=== PATIENT | female | born 1935 | race Caucasian/White ===

== ENCOUNTER 2020-05-14 16:57 | Inpatient (IN) | payer OTHER ==
[2020-05-14] MEDS ORDERED: SODIUM CHLORIDE 1,000 ML IV STA ×2 (17:05→18:54)
[2020-05-14] MEDS ORDERED: ACETAMINOPHEN 1000 MG/100 ML VIAL (NON FORMULARY) IVPB ONE (17:05)
--- NOTE | 2020-05-14 17:09 | PDOC ---
Rapid Medical Evaluation Chief Complaint: Urinary Problem Time Seen by Provider: 05/14/20 17:02 Medical Evaluation: Allergies Allergy/AdvReac Type Severity Reaction Status Date / Time No Known Drug Allergies Allergy Verified 01/07/15 16:46 Vital Signs Temp Pulse Resp BP Pulse Ox 102.3 F H 95 H 20 139/85 97 05/14/20 17:01 05/14/20 17:01 05/14/20 17:01 05/14/20 17:01 05/14/20 17:01 05/14/20 17:08 CC: recent uti, on keflex, now with fever and increased confusion Exam: febrile, alert with + eye contatc Plan: septic w/u Discharge Disposition - Diagnosis Sepsis - Referrals - Patient Instructions - Post Discharge Activity
[2020-05-14] MEDS ORDERED: ACETAMINOPHEN INJECTION 100 ML IVPB ONE (18:20)
[2020-05-14 18:24] LABS: BASO % 0.3 % (0-2.0); EOS % 0.1 % (0-4.5); HEMATOCRIT 44.3 % (32.4-45.2); LYMPH % 12.9 % (8-40); MCH 32.2 pg (25.7-33.7); MCHC 33.9 g/dl (32.0-36.0); MEAN PLT VOLUME 8.3 fl (7.5-11.1); MONO % 9.2 % (3.8-10.2); NEUT % 77.5 % (42.8-82.8); PLATELET COUNT 257 K/MM3 (134-434); RBC 4.66 M/mm3 (3.60-5.2); RDW 12.6 % (11.6-15.6); WHITE BLOOD COUNT 13.5 K/mm3 (4.0-10.0)
[2020-05-14 18:49] LABS: URINE APPEARANCE CLEAR; URINE BILIRUBIN NEGATIVE (NEGATIVE); URINE COLOR YELLOW; URINE GLUCOSE (UA) TRACE (NEGATIVE); URINE KETONE NEGATIVE (NEGATIVE); URINE LEUK ESTERASE NEGATIVE (NEGATIVE); URINE NITRITE NEGATIVE (NEGATIVE); URINE PROTEIN NEGATIVE (NEGATIVE); URINE UROBILINOGEN 4.0 E.U/dl mg/dL (0.2-1.0)
[2020-05-14 18:57] LABS: ALBUMIN 3.6 g/dl (3.4-5.0); ALK PHOS 84 U/L (45-117); ANION GAP 9 MMOL/L (8-16); BILIRUBIN,TOTAL 1.2 mg/dL (0.2-1); BLOOD UREA NITROGEN 15.8 mg/dL (7-18); CALCIUM 9.2 mg/dL (8.5-10.1); CHLORIDE 98 mmol/L (98-107); CO2 26 mmol/L (21-32); CREATININE 0.7 mg/dL (0.55-1.3); GLUCOSE,RANDOM 114 mg/dL (74-106); POTASSIUM 3.5 mmol/L (3.5-5.1); SGOT/AST 28 U/L (15-37); SGPT/ALT 33 U/L (13-61); SODIUM 132 mmol/L (136-145); TOT PROT 7.4 g/dl (6.4-8.2)
--- NOTE | 2020-05-14 19:24 | PDOC ---
Attending Attestation - Resident Resident Name: Bandar Vincent - ED Attending Attestation I have performed the following: I have examined & evaluated the patient, The case was reviewed & discussed with the resident, I agree w/resident's findings & plan - HPI HPI: 05/14/20 20:48 see resident hpi - Physicial Exam PE: 05/14/20 20:48 see resident exam - Critical Care Time Total Critical Care Time: 60 Critical Care Statement: The care of this patient involved high complexity decision making to prevent further life threatening deterioration of the patient's condition and/or to evaluate & treat vital organ system(s) failure or risk of failure. - Medical Decision Making 05/14/20 20:48 84-year-old female with recent treatment for urinary tract infection now with fever and altered mental status according to daughter Plan for sepsis evaluation, CT scan of the head as well as CT scan of the abdomen and pelvis due to elevation of bilirubin and poor historian status We will follow-up with ultrasound if indicated Plan for admission Discharge - Discharge Information Problems reviewed: Yes Clinical Impression/Diagnosis: Sepsis - Follow up/Referral Referrals: Karel Avila MD [Primary Care Provider] - - Patient Discharge Instructions - Post Discharge Activity
--- NOTE | 2020-05-14 19:42 | PDOC ---
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 Pt was recently in the ED on 05/12 for vomiting and was incidentally found to have a UTI. She was discharged with po keflex 500 mg bid. Pt doesn't have any children and her recently so most of history was obtained from niece who was at bedside. Niece reports worsening of mental status since being discharged from the ED on 05/12. At baseline, she has mild memory deficits but is well-oriented and interactive; speaks Ukranian. Today pt is not responsive to verbal commands, but will follow some commands with gestures. She is also disoriented - not responding to questions regarding name, day, or location; but did express that it was past 6 pm by looking at clock on the wall. Pt no longer with nausea/vomiting. ROS limited as pt not responding to questions, even with help from niece. Niece denies that pt is having chills, headache, falls, weakness, changes in strength/sensation, or vision changes. PMHX: as in HPI PSHX: see below Meds: Aspirin [ASA -] 81 mg PO DAILY #0 tab.chew 05/27/12 Metoprolol Tartrate [Lopressor -] 50 mg PO BID #0 tablet 05/27/12 Cholecalciferol (Vitamin D3) [Vitamin D3 -] 1,000 unit PO DAILY 01/07/15 Simvastatin 10 mg PO DAILY 01/07/15 Cephalexin [Keflex] 500 mg PO BID 10 Days #20 capsule 05/12/20 Allergies: nkda Tob: denies Etoh: denies Rec drugs: denies PCP: Dr. Austin THOMPSON GENERAL/CONSTITUTIONAL: No chills. No weakness. + fever HEAD, EYES, EARS, NOSE AND THROAT: No change in vision. No ear pain or discharg e. No sore throat. CARDIOVASCULAR: No chest pain or shortness of breath RESPIRATORY: No cough, wheezing, or hemoptysis. GASTROINTESTINAL: No nausea, vomiting, diarrhea or constipation. GENITOURINARY: No dysuria, frequency, or change in urination. MUSCULOSKELETAL: No joint or muscle swelling or pain. No neck or back pain. SKIN: No rash NEUROLOGIC: No headache, vertigo, loss of consciousness, or change in strength/sensation. +altered mental status ENDOCRINE: No increased thirst. No abnormal weight change HEMATOLOGIC/LYMPHATIC: No anemia, easy bleeding, or history of blood clots. ALLERGIC/IMMUNOLOGIC: No hives or skin allergy. PE GENERAL: Awake, alert,and no oriented; in no acute distress HEAD: No signs of trauma, normocephalic, atraumatic EYES: PERRLA, EOMI, sclera anicteric, conjunctiva clear ENT: Auricles normal inspection, hearing grossly normal, nares patent, oropharynx clear without exudates. Moist mucosa NECK: Normal ROM, supple, no lymphadenopathy, JVD, or masses LUNGS: No distress, speaks full sentences, clear to auscultation bilaterally HEART: Regular rate and rhythm, normal S1 and S2, no murmurs, rubs or gallops, peripheral pulses normal and equal bilaterally. ABDOMEN: Soft, nontender, nondistended normoactive bowel sounds. No suprapubic tenderness EXTREMITIES : Normal inspection, Normal range of motion, no edema. No clubbing or cyanosis. NEUROLOGICAL: Cranial nerves II through XII grossly intact. Normal speech, normal gait, no focal sensorimotor deficits. SKIN: Warm, Dry, normal turgor, no rashes or lesions noted 05/14/20 19:52 Past History - Medical History Allergies/Adverse Reactions: Allergies Allergy/AdvReac Type Severity Reaction Status Date / Time No Known Drug Allergies Allergy Verified 01/07/15 16:46 Home Medications: Ambulatory Orders Cephalexin [Keflex] 500 mg PO BID 10 Days #20 capsule 05/12/20 Losartan Potassium 50 mg PO DAILY 05/14/20 Atorvastatin Ca [Lipitor] 20 mg PO HS 05/16/20 Metoprolol Tartrate [Lopressor -] 50 mg PO DAILY 05/16/20 Montelukast Sodium [Singulair] 10 mg PO DAILY 05/16/20 Anemia: No Asthma: No CVA: No COPD: No CHF: No Dementia: No Diabetes: No HTN: Yes Hypercholesterolemia: No Seizures: No - Reproductive History Is Patient Now?: No - Immunization History Immunization Up to Date: No - Psycho-Social/Smoking History Smoking Status: No Smoking History: Never smoked Have you smoked in the past 12 months: No Number of Cigarettes Smoked Daily: 0 If you are a former smoker, when did you quit?: 20y Information on smoking cessation initiated: No - Substance Abuse Hx (Audit-C & DAST Scrn) How often the patient has a drink containing alcohol: Never Score: In Men: 4 or > Positive; In Women: 3 or > Positive: 0 Screen Result (Pos requires Nsg. Audit-10AR): Negative In the last yr the pt used illegal drug/Rx for NonMed reason: No Score: Yes response is considered Positive: 0 Screen Result (Positive result requires Nsg. DAST-10): Negative *Physical Exam - Vital Signs Last Vital Signs Temp Pulse Resp BP Pulse Ox 102.3 F H 95 H 20 139/85 97 05/14/20 17:01 05/14/20 17:01 05/14/20 17:01 05/14/20 17:01 05/14/20 17:01 ED Treatment Course - LABORATORY CBC & Chemistry Diagram: 05/16/20 05:50 05/16/20 05:50 - ADDITIONAL ORDERS Additional order review: Laboratory Results 05/14/20 05/14/20 18:30 18:05 Sodium 132 L Potassium 3.5 Chloride 98 Carbon Dioxide 26 Anion Gap 9 BUN 15.8 Creatinine 0.7 Est GFR (CKD-EPI)AfAm 93.52 Est GFR (CKD-EPI)NonAf 80.69 Random Glucose 114 H Calcium 9.2 Total Bilirubin 1.2 H AST 28 ALT 33 Alkaline Phosphatase 84 Total Protein 7.4 Albumin 3.6 Urine Color Yellow Urine Appearance Clear Urine pH 6.0 Ur Specific [place] 1.022 Urine Protein Negative Urine Glucose (UA) Trace Urine Ketones Negative Urine Blood Negative Urine Nitrite Negative Urine Bilirubin Negative Urine Urobilinogen 4.0 e.u/dl H Ur Leukocyte Esterase Negative 05/14/20 18:05 RBC 4.66 MCV 95.0 MCHC 33.9 RDW 12.6 MPV 8.3 Neutrophils % 77.5 Lymphocytes % 12.9 D Monocytes % 9.2 Eosinophils % 0.1 D Basophils % 0.3 - RADIOLOGY Radiology Studies Ordered: Category Date Time Status HEAD CT WITHOUT CONTRAST [CT] Stat CT Scan 05/14/20 19:02 Ordered - Medications Given in the ED: ED Medications Discontinued Medications Generic Name Dose Route Start Last Admin Trade Name Godwin PRN Reason Stop Dose Admin Acetaminophen 1,000 mg 05/14/20 17:05 05/14/20 18:25 Ofirmev Injection - IVPB 05/14/20 17:06 1,000 mg ONCE ONE Administration Sodium Chloride 1,000 mls @ 1,000 mls/hr 05/14/20 17:05 05/14/20 18:25 Normal Saline - IV 05/14/20 18:04 1,000 mls/hr ASDIR STA Administration Medical Decision Making - Medical Decision Making 05/14/20 19:59 MDM Pt is an 84 yo F with PMH of HTN, HLD, and ?age-associated memory loss p resenting to the ED with altered mental status and recent UTI. DDX including but not limited to: delirium 2/2 UTI with concern for sepsis vs sepsis 2/2 another source; r/o neurological etiology to AMS W/U: - CXR, CT Head - CBC, CMP, lactate - UA, Urine Culture, Blood Culture - EKG - CT A/P TX: - IVF rescuscitation - IV Tylenol - 1g IV Rocephin 05/14/20 20:06 labs significant for: WBC 13.5 05/14/20 21:30 Discharge - Discharge Information Problems reviewed: Yes Clinical Impression/Diagnosis: Intracranial hemorrhage, SIRS (systemic inflammatory response syndrome) AMS (altered mental status) Qualifiers: Altered mental status type: unspecified Qualified Code(s): R41.82 - Altered mental status, unspecified Condition: Guarded - Admission Yes - Follow up/Referral - Patient Discharge Instructions - Post Discharge Activity
[2020-05-14] MEDS ORDERED: CEFTRIAXONE 1 GM/50 ML BAG ONE (20:03)
[2020-05-14] MEDS ORDERED: CEFTRIAXONE 1 GM in DEXTROSE 5%-WATER - 50 ML IVPB ONE (20:15)
[2020-05-14] MEDS ORDERED: VANCOMYCIN 1,000 MG in DEXTROSE 5%-WATER - 250 ML IVPB ONE (21:57)
[2020-05-14] MEDS ORDERED: levETIRAcetam 500 MG/5 ML INJECTION VIAL IVPB ONE ×2 (22:09→22:36)
[2020-05-14] MEDS ORDERED: VANCOMYCIN 1 GRAM (PRE-DOCKED) 1,000 MG/250 ML BAG IVPB ONE (22:22)
--- NOTE | 2020-05-14 23:03 | HP ---
Admitting History and Physical - Primary Care Physician PCP: Karel Avila - Admission Chief Complaint: Altered Mental Status History of Present Illness: This is a 84 y/o female with a past medical history of Hypertension, Hyperlipidemia. ?age-associated Memory Loss. Who presents to the ED for AMS. Per ED records: patient's last known well was last Tuesday05/09/2020. Patient was seen in the ED on 05/12 for emesis, was found to have a UTI. She was discharged on Keflex 500mg po BID. Patient's niece reports worsening of mental status since being discharged from the ED on 05/12. At baseline, she has mild memory deficits but is well-oriented and interactive; speaks Ukranian. Today patient is not responsive to verbal commands, but will follow some commands with gestures. She is also disoriented - not responding to questions regarding name, day, or location; but did express that it was past 6 pm by looking at clock on the wall. The niece denies patient having recent falls, weakness, changes in strength/sensation, or vision changes. Per the niece, she denies patient having chills, cough, headache, SOB, CP, palpitations, abdominal pain, diarrhea, melena, hematochezia. 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) Cardiovascular: Yes: HTN, Hyperlipdemia ...: No - Past Surgical History Past Surgical History: Yes: None - Advance Directives Advance Directives: Yes: DNR (DNI) - Smoking History Smoking history: Former smoker Have you smoked in the past 12 months: No Aproximately how many cigarettes per day: 0 If you are a former smoker, when did you quit?: 20y - Alcohol/Substance Use Hx Alcohol Use: No History of Substance Use: reports: None - Social History Usual Living Arrangement: Yes: Other ADL: Family Assistance History of Recent Travel: No Home Medications - Allergies Allergies/Adverse Reactions: Allergies Allergy/AdvReac Type Severity Reaction Status Date / Time No Known Drug Allergies Allergy Verified 01/07/15 16:46 - Home Medications Home Medications: Ambulatory Orders Aspirin [ASA -] 81 mg PO DAILY #0 tab.chew 05/27/12 Cholecalciferol (Vitamin D3) [Vitamin D3 -] 1,000 unit PO DAILY 01/07/15 Simvastatin 10 mg PO DAILY 01/07/15 Cephalexin [Keflex] 500 mg PO BID 10 Days #20 capsule 05/12/20 Losartan Potassium 50 mg PO DAILY 05/14/20 Family Medical History Family History: Unable to Obtain Review of Systems Unable to obtain ROS, reason: Clinical Condition Physical Examination Vital Signs: Vital Signs Temperature 98.9 F 05/14/20 22:35 Pulse Rate 91 H 05/14/20 22:35 Respiratory Rate 24 H 05/14/20 22:35 Blood Pressure 159/74 05/14/20 22:35 O2 Sat by Pulse Oximetry (%) 95 05/14/20 22:35 Constitutional: Yes: No Distress, Calm Eyes: Yes: Conjunctiva Clear, EOM Intact, PERRL HENT: Yes: Atraumatic, Normocephalic Neck: Yes: Supple, Trachea Midline Cardiovascular: Yes: Regular Rate and Rhythm, S1, S2 Respiratory: Yes: Regular, CTA Bilaterally Gastrointestinal: Yes: Normal Bowel Sounds, Soft. No: Tenderness, Tenderness, Epigastrium, Tenderness, Rebound ...Rectal Exam: Yes: Deferred Renal/: Yes: Incontinence Breast(s): Yes: WNL Musculoskeletal: Yes: WNL Extremities: Yes: WNL Edema: No Peripheral Pulses WNL: Yes Neurological: Yes: Alert, Confusion Psychiatric: Yes: Alert Labs: CBC, BMP 05/14/20 18:05 05/14/20 18:05 Laboratory Results - last 24 hr 05/14/20 05/14/20 05/14/20 17:26 18:05 18:05 WBC 13.5 H RBC 4.66 Hgb 15.0 Hct 44.3 MCV 95.0 MCH 32.2 MCHC 33.9 RDW 12.6 Plt Count 257 MPV 8.3 Absolute Neuts (auto) 10.5 H Neutrophils % 77.5 Lymphocytes % 12.9 D Monocytes % 9.2 Eosinophils % 0.1 D Basophils % 0.3 Nucleated RBC % 0 Sodium 132 L Potassium 3.5 Chloride 98 Carbon Dioxide 26 Anion Gap 9 BUN 15.8 Creatinine 0.7 Est GFR (CKD-EPI)AfAm 93.52 Est GFR (CKD-EPI)NonAf 80.69 Random Glucose 114 H Lactic Acid 1.4 Calcium 9.2 Total Bilirubin 1.2 H AST 28 ALT 33 Alkaline Phosphatase 84 Troponin I < 0.02 Total Protein 7.4 Albumin 3.6 Urine Color Urine Appearance Urine pH Ur Specific [place] Urine Protein Urine Glucose (UA) Urine Ketones Urine Blood Urine Nitrite Urine Bilirubin Urine Urobilinogen Ur Leukocyte Esterase 05/14/20 18:30 WBC RBC Hgb Hct MCV MCH MCHC RDW Plt Count MPV Absolute Neuts (auto) Neutrophils % Lymphocytes % Monocytes % Eosinophils % Basophils % Nucleated RBC % Sodium Potassium Chloride Carbon Dioxide Anion Gap BUN Creatinine Est GFR (CKD-EPI)AfAm Est GFR (CKD-EPI)NonAf Random Glucose Lactic Acid Calcium Total Bilirubin AST ALT Alkaline Phosphatase Troponin I Total Protein Albumin Urine Color Yellow Urine Appearance Clear Urine pH 6.0 Ur Specific [place] 1.022 Urine Protein Negative Urine Glucose (UA) Trace Urine Ketones Negative Urine Blood Negative Urine Nitrite Negative Urine Bilirubin Negative Urine Urobilinogen 4.0 e.u/dl H Ur Leukocyte Esterase Negative Intake & Output 05/12/20 05/13/20 05/14/20 05/15/20 23:59 23:59 23:59 23:59 Weight 72.575 kg Imaging - Results Chest X-ray: Report Reviewed (read by Dr Krystyna Campos- large acute/subacute hemorrhage in the right frontal lobe, anteriorly measuring 4.4 x 3.1 cm with moderate surrounding edema and mild mass effect on the right frontal horn. Suggestion of minimial adjacent subarachnoid hemorrhage. ? faint/minimal subarachnoid hemorrhage at the right parieto-occipital junction), Image Reviewed Cat Scan: Report Reviewed, Image Reviewed EKG: Image Reviewed Problem List - Problems (1) Intracranial hemorrhage Assessment/Plan: Family reports AMS Head CT image, report reviewed- acute/subacute hemorrhage in the right frontal lobe Neurosurgeon consulted and aware- per ED resident Continue cardiac monitoring HOB elevated Neurochecks Seizure Precautions Fall Precautions NPO Swallow Eval MRI Brain in am Monitor CBC, CMP closely Will hold IVF 2/2 NS boluses given in ED Continue Keppra Code(s): I62.9 - NONTRAUMATIC INTRACRANIAL HEMORRHAGE, UNSPECIFIED (2) Acute metabolic encephalopathy Assessment/Plan: Likely secondary to ICH Neurochecks Fall Precautions Monitor vitals Monitor CBC, CMP Code(s): G93.41 - METABOLIC ENCEPHALOPATHY (3) Sepsis Assessment/Plan: Fever of unknown etiology qSOFA 1 UA reviewed- neg UTI Chest Xray- no acute pathology Blood Cultures x2-pending Urine Culture-pending Vancomycn, Ceftriaxone given in ED, will continue to treat empirically Appreciate ID consult Monitor CBC, CMP Ofirmev prn Code(s): A41.9 - SEPSIS, UNSPECIFIED ORGANISM (4) HTN (hypertension) Assessment/Plan: stable Monitor BP Hold home med BP meds IV only, prn Monitor renal function Code(s): I10 - ESSENTIAL (PRIMARY) HYPERTENSION (5) HLD (hyperlipidemia) Assessment/Plan: stable Hold home med for now Code(s): E78.5 - HYPERLIPIDEMIA, UNSPECIFIED (6) Encounter for screening laboratory testing for COVID-19 virus Assessment/Plan: Low Risk COVID PCR-pending Isolation Precautions Code(s): Z11.59 - ENCOUNTER FOR SCREENING FOR OTHER VIRAL DISEASES Assessment/Plan This is a 84 y/o female with a past medical history of Hypertension, Hyperlipidemia. ?age-associated Memory Loss. Admitted to Telemetry for Intracranial Hemorrhage for further evaluation of their emergent condition. Plan: See Problem List FEN Replete lytes prn NPO DVT ppx OOB SCDs Hold AC 2/2 ICH Code Status: DNR/DNI Dispo: Requires Inpatient Care Visit type - Medication Review Med list reviewed for High Risk Meds patients 65 and older: No (unable to verify med list) - Emergency Visit Emergency Visit: Yes ED Registration Date: 05/14/20 Care time: The patient presented to the Emergency Department on the above date and was hospitalized for further evaluation of their emergent condition. - New Patient This patient is new to me today: Yes Date on this admission: 05/14/20 - Critical Care Critical Care patient: No
--- NOTE | 2020-05-14 23:25 | PDOC ---
*Physical Exam - Vital Signs Last Vital Signs Temp Pulse Resp BP Pulse Ox 98.9 F 91 H 24 H 159/74 95 05/14/20 22:35 05/14/20 22:35 05/14/20 22:35 05/14/20 22:35 05/14/20 22:35 ED Treatment Course - LABORATORY CBC & Chemistry Diagram: 05/14/20 18:05 05/14/20 18:05 - ADDITIONAL ORDERS Additional order review: Laboratory Results 05/14/20 05/14/20 05/14/20 18:30 18:05 17:26 Sodium 132 L Potassium 3.5 Chloride 98 Carbon Dioxide 26 Anion Gap 9 BUN 15.8 Creatinine 0.7 Est GFR (CKD-EPI)AfAm 93.52 Est GFR (CKD-EPI)NonAf 80.69 Random Glucose 114 H Lactic Acid 1.4 Calcium 9.2 Total Bilirubin 1.2 H AST 28 ALT 33 Alkaline Phosphatase 84 Troponin I < 0.02 Total Protein 7.4 Albumin 3.6 Urine Color Yellow Urine Appearance Clear Urine pH 6.0 Ur Specific [place] 1.022 Urine Protein Negative Urine Glucose (UA) Trace Urine Ketones Negative Urine Blood Negative Urine Nitrite Negative Urine Bilirubin Negative Urine Urobilinogen 4.0 e.u/dl H Ur Leukocyte Esterase Negative 05/14/20 18:05 RBC 4.66 MCV 95.0 MCHC 33.9 RDW 12.6 MPV 8.3 Neutrophils % 77.5 Lymphocytes % 12.9 D Monocytes % 9.2 Eosinophils % 0.1 D Basophils % 0.3 - RADIOLOGY Radiology Studies Ordered: Category Date Time Status BRAIN MRI W&W/O CONTRAST [MRI] Stat MRI 05/14/20 22:36 Ordered - Medications Given in the ED: ED Medications Discontinued Medications Generic Name Dose Route Start Last Admin Trade Name Freq PRN Reason Stop Dose Admin Acetaminophen 1,000 mg 05/14/20 17:05 05/14/20 18:25 Ofirmev Injection - IVPB 05/14/20 17:06 1,000 mg ONCE ONE Administration Sodium Chloride 1,000 mls @ 1,000 mls/hr 05/14/20 17:05 05/14/20 18:25 Normal Saline - IV 05/14/20 18:04 1,000 mls/hr ASDIR STA Administration Sodium Chloride 1,000 mls @ 1,000 mls/hr 05/14/20 18:54 05/14/20 20:14 Normal Saline - IV 05/14/20 19:53 1,000 mls/hr ASDIR STA Administration Ceftriaxone Sodium 1 gm/ 50 mls @ 100 mls/hr 05/14/20 20:15 05/14/20 20:14 Dextrose IVPB 05/14/20 20:44 100 mls/hr ONCE ONE Administration Medical Decision Making - Medical Decision Making Pt was signed out to me by resident Dr. Vincent, who explained the presentation, ED course, any pending results, and needed interventions. Pending results include CTH and admission. Pt is currently stable and is lying comfortably. 05/14/20 23:21 CTH showed large R frontal ICH with small amount of SAH, no midline shift. Melina rn for malignancy, surrounding edema of the hemorrhage noted. Discussed case with Dr. Holman (neurosurgery) who agrees with abx coverage (ceftriaxone and vanco, will not pursue LP at this time due to hemorrhage). Keppra loaded. HOB elevated. MRI of brain with and without contrast in AM. Dr. Holman will follow. NEXT OF KIN -- NIECE (JAIRO) [phone]; discussed dnr/dni and niece believes pt would not want these interventions, except for temporary intubation needed for procedures Pts BP stable, pt protecting airway, speaking in short sentences. HOB elevated. Pt admitted to telemetry service/stroke unit. 05/14/20 23:21 Discharge - Discharge Information Problems reviewed: Yes Clinical Impression/Diagnosis: Intracranial hemorrhage, SIRS (systemic inflammatory response syndrome) AMS (altered mental status) Qualifiers: Altered mental status type: unspecified Qualified Code(s): R41.82 - Altered mental status, unspecified Condition: Guarded - Admission Yes - Follow up/Referral Referrals: Karel Avila MD [Primary Care Provider] - - Patient Discharge Instructions - Post Discharge Activity
--- NOTE | 2020-05-15 02:55 | CONSULT ---
Consultation: REQUESTING PROVIDER: Dr. Feliciano CONSULT REQUEST: We have been asked to medically evaluate this patient for ICU admission HISTORY OF PRESENT ILLNESS: This is a 84 yo female with PMHx of HTN, HLD, who presents to the ED for AMS. Patient was recently admitted to [facility] ED on 05/12 for emesis and was found to have a UTI. She was discharged on Keflex 500mg po BID. Patient's niece reports worsening of mental status since being discharged from the ED on 05/12. Patient speaks Ukranian. Niece was here when patient was admitted earlier. Patient has mild dementia at baseline. ICU consulted because CT head showed large R frontal ICH with small amount of SAH, no midline shift. Concern for malignancy, surrounding edema of the hemorrhage noted. Dr. Feliciano in ED discussed case with Dr. Holman (neurosurgery) who agrees with abx coverage (ceftriaxone and vanco, will not pursue LP at this time due to hemorrhage). Keppra loaded. HOB elevated. MRI of brain with and without contrast in AM. Dr. Holman will follow. BP should be kept < 160, ICU needed for ICH requiring Cardine drip. REVIEW OF SYSTEMS: Limited due to patient not verbalizing CONSTITUTIONAL: Absent: fever, chills, diaphoresis, generalized weakness, malaise, loss of appetite, weight change HEENT: Absent: rhinorrhea, nasal congestion, throat pain, throat swelling, difficulty swallowing, mouth swelling, ear pain, eye pain, visual changes CARDIOVASCULAR: Absent: chest pain, syncope, palpitations, irregular heart rate, lightheadedness, peripheral edema RESPIRATORY: Absent: cough, shortness of breath, dyspnea with exertion, orthopnea, wheezing, stridor, hemoptysis GASTROINTESTINAL: Absent: abdominal pain, abdominal distension, nausea, vomiting, diarrhea, constipation, melena, hematochezia GENITOURINARY: Absent: dysuria, frequency, urgency, hesitancy, hematuria, flank pain, genital pain MUSCULOSKELETAL: Absent: myalgia, arthralgia, joint swelling, back pain, neck pain SKIN: Absent: rash, itching, pallor HEMATOLOGIC/IMMUNOLOGIC: Absent: easy bleeding, easy bruising, lymphadenopathy, frequent infections ENDOCRINE: Absent: unexplained weight gain, unexplained weight loss, heat intolerance, cold intolerance NEUROLOGIC: Absent: headache, focal weakness or paresthesias, dizziness, unsteady gait, seizure, mental status changes, bladder or bowel incontinence PSYCHIATRIC: Absent: anxiety, depression, suicidal or homicidal ideation, hallucinations. PHYSICAL EXAMINATION Vital Signs 05/14/20 05/14/20 17:01 22:35 Temperature 102.3 F H 98.9 F Pulse Rate 95 H Pulse Rate [ 91 H Radial] Respiratory 20 24 H Rate Blood Pressure 139/85 Blood Pressure 159/74 [Left Arm] O2 Sat by Pulse 97 95 Oximetry (%) 05/15/20 01:56 Temperature Pulse Rate Pulse Rate [ 90 Radial] Respiratory 24 H Rate Blood Pressure Blood Pressure 191/88 H [Left Arm] O2 Sat by Pulse 97 Oximetry (%) GENERAL: Awake, alert, not verbalizing, HEAD: Normal with no signs of trauma. EYES: PERRL, ocular movements intact ENT: Moist mucous membranes. NECK: no JVD LUNGS: CTA BL HEART: RRR s1, s2 ABDOMEN: Soft, nontender, not distended MUSCULOSKELETAL: No bony deformities or tenderness UPPER EXTREMITIES: warm, well-perfused. No cyanosis. No edema. LOWER EXTREMITIES: 2+ pulses, warm, well-perfused. No edema. NEUROLOGICAL: Patient responding to stimuli, SKIN: Warm, dry, no rashes or lesions noted. Laboratory Results - last 24 hr 05/14/20 05/14/20 05/14/20 17:26 18:05 18:05 WBC 13.5 H RBC 4.66 Hgb 15.0 Hct 44.3 MCV 95.0 MCH 32.2 MCHC 33.9 RDW 12.6 Plt Count 257 MPV 8.3 Absolute Neuts (auto) 10.5 H Neutrophils % 77.5 Lymphocytes % 12.9 D Monocytes % 9.2 Eosinophils % 0.1 D Basophils % 0.3 Nucleated RBC % 0 Sodium 132 L Potassium 3.5 Chloride 98 Carbon Dioxide 26 Anion Gap 9 BUN 15.8 Creatinine 0.7 Est GFR (CKD-EPI)AfAm 93.52 Est GFR (CKD-EPI)NonAf 80.69 Random Glucose 114 H Lactic Acid 1.4 Calcium 9.2 Total Bilirubin 1.2 H AST 28 ALT 33 Alkaline Phosphatase 84 Troponin I < 0.02 Total Protein 7.4 Albumin 3.6 Urine Color Urine Appearance Urine pH Ur Specific [place] Urine Protein Urine Glucose (UA) Urine Ketones Urine Blood Urine Nitrite Urine Bilirubin Urine Urobilinogen Ur Leukocyte Esterase 05/14/20 18:30 WBC RBC Hgb Hct MCV MCH MCHC RDW Plt Count MPV Absolute Neuts (auto) Neutrophils % Lymphocytes % Monocytes % Eosinophils % Basophils % Nucleated RBC % Sodium Potassium Chloride Carbon Dioxide Anion Gap BUN Creatinine Est GFR (CKD-EPI)AfAm Est GFR (CKD-EPI)NonAf Random Glucose Lactic Acid Calcium Total Bilirubin AST ALT Alkaline Phosphatase Troponin I Total Protein Albumin Urine Color Yellow Urine Appearance Clear Urine pH 6.0 Ur Specific [place] 1.022 Urine Protein Negative Urine Glucose (UA) Trace Urine Ketones Negative Urine Blood Negative Urine Nitrite Negative Urine Bilirubin Negative Urine Urobilinogen 4.0 e.u/dl H Ur Leukocyte Esterase Negative Active Medications Generic Name Dose Route Start Last Admin Trade Name Freq PRN Reason Stop Dose Admin Nicardipine HCl 25 mg/ 250 mls @ 25 mls/hr 05/15/20 02:30 Dextrose IVPB TITR SOTERO Protocol 2.5 MG/HR ASSESSMENT/PLAN: Neuro: - ICH, concern for possible malignancy - Neurosurgery consulted (Dr. Holman) Keppra started cardine drip started goal systolic BP < 160 - MRI of brain w/wo contrast in AM - Q2H neuro checks Pulm: - maintain o2 sat > 95% Cardio: - HTN on Cardine drip - cardiac monitoring ID - ID Consulted (Dr. Marin) - IV ceftriaxone & IV vanco started - Urine cx and blood cx pending Renal: - mccoy in place DVT Ppx: - No AC because of bleeding GI PPx: - 40 protonix IV daily FEN: - NPO Patient is DNR/DNI Visit type - Medication Review Med list reviewed for High Risk Meds patients 65 and older: Yes - Emergency Visit Emergency Visit: Yes ED Registration Date: 05/14/20 Care time: The patient presented to the Emergency Department on the above date and was hospitalized for further evaluation of their emergent condition. - New Patient This patient is new to me today: Yes Date on this admission: 05/15/20 - Critical Care Critical Care patient: Yes Total Critical Care Time (in minutes): 36 Critical Care Statement: The care of this patient involved high complexity decision making to prevent further life threatening deterioration of the patient's condition and/or to evaluate & treat vital organ system(s) failure or risk of failure. ATTENDING PHYSICIAN STATEMENT I saw and evaluated the patient. I reviewed the resident's note and discussed the case with the resident. I agree with the resident's findings and plan as documented. SUBJECTIVE: OBJECTIVE: ASSESSMENT AND PLAN:
[2020-05-15] MEDS: NICARDIPINE 25 MG in DEXTROSE 5%-WATER - 240 ML IVPB SCH (03:20)
[2020-05-15] MEDS ORDERED: ACETAMINOPHEN 1000 MG/100 ML VIAL (NON FORMULARY) IVPB PRN (06:22)
[2020-05-15] MEDS ORDERED: ACETAMINOPHEN INJECTION 100 ML IVPB ONE (06:27)
[2020-05-15] MEDS ORDERED: ACETAMINOPHEN 325 MG TABLET (FP) ONE (06:31)
[2020-05-15] MEDS ORDERED: ACETAMINOPHEN 325 MG TABLET (FP) PO ONE (06:38)
[2020-05-15 08:22] LABS: BASO % 0.1 % (0-2.0); HEMATOCRIT 41.6 % (32.4-45.2); HEMOGLOBIN 14.2 GM/dL (10.7-15.3); LYMPH % 7.7 % (8-40); MCH 31.8 pg (25.7-33.7); MCHC 34.1 g/dl (32.0-36.0); MEAN CELL VOLUME 93.5 fl (80-96); MEAN PLT VOLUME 8.3 fl (7.5-11.1); MONO % 7.7 % (3.8-10.2); NEUT % 84.5 % (42.8-82.8); PLATELET COUNT 254 K/MM3 (134-434); RBC 4.45 M/mm3 (3.60-5.2); RDW 12.6 % (11.6-15.6); WHITE BLOOD COUNT 12.1 K/mm3 (4.0-10.0)
[2020-05-15 08:27] LABS: INR 1.22 (0.83-1.09); PROTHROMBIN TIME (PATIENT) 14.4 SEC (9.7-13.0)
[2020-05-15 08:39] LABS: ALBUMIN 3.2 g/dl (3.4-5.0); BILIRUBIN,TOTAL 0.9 mg/dL (0.2-1); CALCIUM 8.7 mg/dL (8.5-10.1); CREATININE 1.2 mg/dL (0.55-1.3); MAGNESIUM 2.3 mg/dL (1.8-2.4); PHOSPHOROUS 3.5 mg/dL (2.5-4.9); POTASSIUM 3.3 mmol/L (3.5-5.1); TOT PROT 6.6 g/dl (6.4-8.2)
--- NOTE | 2020-05-15 09:16 | CON.CARD ---
Consult Consult Specialty:: Cardiology Referred by:: Inez Reason for Consultation:: Hypertension. Confusion - History of Present Illness Chief Complaint: Confusion History of Present Illness: The patient is an 85-year-old female, with a history of hypertension, dementia, hyperlipidemia, now presenting with confusion. Found to have an intracranial bleed. The patient is hemodynamically stable. Not able to give history. She seems to be in no apparent distress. 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) Cardio/Vascular: Yes: HTN, Hyperlipdemia ...: No - Past Surgical History Past Surgical History: Yes: None - Alcohol/Substance Use Hx Alcohol Use: No History of Substance Use: reports: None - Smoking History Smoking history: Former smoker Have you smoked in the past 12 months: No Aproximately how many cigarettes per day: 0 If you are a former smoker, when did you quit?: 20y - Social History ADL: Family Assistance History of Recent Travel: No Home Medications - Allergies Allergies/Adverse Reactions: Allergies Allergy/AdvReac Type Severity Reaction Status Date / Time No Known Drug Allergies Allergy Verified 01/07/15 16:46 - Home Medications Home Medications: Ambulatory Orders Aspirin [ASA -] 81 mg PO DAILY #0 tab.chew 05/27/12 Cholecalciferol (Vitamin D3) [Vitamin D3 -] 1,000 unit PO DAILY 01/07/15 Simvastatin 10 mg PO DAILY 01/07/15 Cephalexin [Keflex] 500 mg PO BID 10 Days #20 capsule 05/12/20 Losartan Potassium 50 mg PO DAILY 05/14/20 Review of Systems - Review of Systems Constitutional: reports: Lethargy, Weakness Eyes: reports: No Symptoms HENT: reports: No Symptoms Neck: reports: No Symptoms Cardiovascular: reports: No Symptoms Respiratory: reports: No Symptoms Gastrointestinal: reports: No Symptoms Genitourinary: reports: No Symptoms Breasts: reports: No Symptoms Reported Musculoskeletal: reports: No Symptoms Integumentary: reports: No Symptoms Neurological: reports: Confusion, Headache, Unsteady Gait Endocrine: reports: No Symptoms Hematology/Lymphatic: reports: No Symptoms Psychiatric: reports: No Symptoms Vital Signs: Vital Signs Temperature 98.0 F 05/15/20 07:15 Pulse Rate 98 H 05/15/20 08:58 Respiratory Rate 18 05/15/20 07:15 Blood Pressure 128/67 05/15/20 08:58 O2 Sat by Pulse Oximetry (%) 96 05/15/20 07:15 Constitutional: Yes: Well Nourished, No Distress, Calm Eyes: Yes: WNL, Conjunctiva Clear HENT: Yes: WNL, Atraumatic Neck: Yes: WNL, Supple, Trachea Midline Respiratory: Yes: WNL, Regular, CTA Bilaterally Gastrointestinal: Yes: WNL, Normal Bowel Sounds, Soft Renal/: Yes: WNL Cardiovascular: Yes: WNL JVD: No Carotid Bruit: No PMI: Non-Displaced Heart Sounds: Yes: S1, S2 Murmur: Yes: Systolic Murmur, Grade 2 Musculoskeletal: Yes: WNL Extremities: Yes: WNL Edema: No Peripheral Pulses: 1+ Left Doralis Pedis, 1+ Right Dorsalis Pedis Integumentary: Yes: WNL Neurological: Yes: Alert, Confusion Psychiatric: Yes: Alert - Other Data Labs, Other Data: CBC, BMP 05/15/20 07:25 05/15/20 07:25 INR, PTT INR 1.22 (0.83-1.09) H 05/15/20 07:25 Troponin, BNP 05/14/20 18:05 Troponin I < 0.02 Troponin, BNP 05/14/20 18:05 Troponin I < 0.02 Assessment/Plan The patient is an 85-year-old female, with a history of hypertension, dementia, hyperlipidemia, now presenting with confusion. Found to have an intracranial bleed. The patient is hemodynamically stable. Not able to give history. She seems to be in no apparent distress. There is no evidence of ischemia nor acute coronary syndrome. Normal cardiac ma rkers. No CHF. There is no need for further cardiac work-up in the setting. The blood pressure is better controlled. Continue current regimen. Neurosurgery is following. Please do not hesitate to call us PRN.
[2020-05-15] MEDS ORDERED: KCL 10 MEQ IVPB 10 MEQ/100 ML INFUS.BAG IVPB ONE ×2 (09:22→10:43)
[2020-05-15] MEDS: KCL 10 MEQ IVPB 10 MEQ/100 ML INFUS.BAG IVPB SCH ×3 (09:33→12:09)
[2020-05-15] MEDS ORDERED: MUPIROCIN 2% TOPICAL OINTMENT FOR DECOLONIZATION NS SCH (10:00)
--- NOTE | 2020-05-15 10:17 | CONSULT ---
Admitting History and Physical - Admission History of Present Illness: Per EMR 85-year-old female, with a history of hypertension, dementia, hyperlipidemia, now presenting with confusion. Found to have an intracranial bleed. Recent admission on 05/12 for emesis/UTI. Patient speaks Ukranian. mild dementia at baseline. CT head- large acute/subacute hemorrhage in the right frontal lobe, anteriorly measuring 4.4 x 3.1 cm with moderate surrounding edema and mild mass effect on the right frontal horn. Suggestion of minimial adjacent subarachnoid hemorrhage. ? faint/minimal subarachnoid hemorrhage at the right parieto-occipital junction Passed Dysphagia screen. Pt is NPO except for meds with sips of water. Laboratory Tests 05/15/20 03:40 COVID-19 (ABDON) Pending Selected Entries 05/15/20 05/15/20 05/15/20 01:56 03:20 03:59 Temperature Pulse Rate 95 H 105 H Pulse Rate [ 90 Radial] Blood Pressure 180/92 H 187/83 H Blood Pressure 191/88 H [Left Arm] O2 Sat by Pulse 97 Oximetry (%) Oxygen Delivery Room Air Method 05/15/20 05/15/20 05/15/20 04:32 05:41 06:12 Temperature 100.7 F H Pulse Rate Pulse Rate [ 110 H 105 H 110 H Radial] Blood Pressure Blood Pressure 159/84 147/74 168/77 [Left Arm] O2 Sat by Pulse 96 96 97 Oximetry (%) Oxygen Delivery Room Air Room Air Room Air Method 05/15/20 05/15/20 07:15 08:58 Temperature 98.0 F Pulse Rate 98 H Pulse Rate [ 99 H Radial] Blood Pressure 128/67 Blood Pressure 140/69 [Left Arm] O2 Sat by Pulse 96 Oximetry (%) Oxygen Delivery Nasal Cannula Method Laboratory Tests 05/14/20 05/15/20 18:05 07:25 WBC 13.5 H 12.1 H Seen just brought from ED to ICU. Mostly mute, unable to initiate speech but follows gestural commands, moves both UE's. Waved good bye and threw a kiss responsively. One instance of a couple of syllables vocalized. Oral/verbal Apraxia/Aphasia? complicated by language barrier. However, I could not elicit goodbye when I said it to her in Ukranian. 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) Cardiovascular: Yes: HTN, Hyperlipdemia ...: No - Past Surgical History Past Surgical History: Yes: None - Advance Directives Advance Directives: Yes: DNR (DNI) - Smoking History Smoking history: Former smoker Have you smoked in the past 12 months: No Aproximately how many cigarettes per day: 0 If you are a former smoker, when did you quit?: 20y - Alcohol/Substance Use Hx Alcohol Use: No History of Substance Use: reports: None - Social History ADL: Family Assistance History of Recent Travel: No History - Admission Reason For Visit: ALT MENTAL STATUS,INTRACRANIAL HEMORRHAGE - Diagnostics X-ray: Report Reviewed (cxr) CT Scan: Report Reviewed ( large acute/subacute hemorrhage in the right frontal lobe, anteriorly measuring 4.4 x 3.1 cm with moderate surrounding edema and mild mass effect on the right frontal horn. Suggestion of minimial adjacent subarachnoid hemorrhage. ? faint/minimal subarachnoid hemorrhage at the right parieto-occipital junction) - General Mental Status: Awake and Alert, Able to Follow Commands (gestural), Flat Affect Attention: Intact Head/Neck Control: Good - Hearing Hearing: Impaired Hearing Aide: Yes Speech Evaluation - Communication Primary Language: LITHUANIAN Communication: Yes: Aphasia (Right frontal cva.Impaired speech initiation ? vs oral/verbal apraxia. Hand dominance?), Language Barrier, Non-Communicable (1 instance elicited brief verbalization-Jargon vs social speech-Yi) Oral Expression Ability: Yes: Severe Impairment - Speech Production Apraxia: Yes Able to Make Needs Known: Yes: Severely Impaired - Speech Characteristics Voice Loudness: Mildly Soft/Quiet Voice Pitch: Yes: Normal Voice Phonatory-based Quality: Yes: Normal Speech Pattern: Impaired Nasal Resonance: Normal - Language/Auditory Comprehension Observation: Able to respond to yes/no queries: No (rare y/n headshake-apraxia?) - Language/Verbal Expression Aphasia: Yes: Nonfluent (suspected) Functional Communication Status: Yes: Severely Impaired - Swallow Evaluation/Bedside Assessment Current Nutritional Intake: NPO Oral Secretions: Yes: WFL Dentition: Yes: Adequate Facial Symmetry at Rest: Symmetrical Jaw Position: Closed at Rest Against Resistance Opening: Normal Against Resistance Closing: Normal Lingual Movement: Symmetric Lingual Movement Characteristics: Normal Laryngeal Movement: Able to Palpate Rate of Intake: Slow/Holding Labial Seal: WFL Chewing: WFL Oral Prep Time: Increased A-P Transit: WFL Coughing/Throat Clear: No Change in Voice: No Recommendations - Speech Evaluation, Impression/Plan Impression: Mostly mute, unable to initiate speech but follows gestural commands, moves both UE's. Waved good bye and threw a kiss responsively. One in stance of a couple of syllables vocalized. Oral/verbal Apraxia/Aphasia? complicated by language barrier. However, I could not elicit goodbye when I said it to her in ranian. Rubbing forehead- r/o headache. Intermittent oral holding. Good mastication.3 o0z water (-).Swallowing intact - Disposition Discharge to: To be Determined - Dysphagia Impressions/Plan Dysphagia Impressions: Minimal Impairment, Ongoing Evaluation *Silent aspiration: cannot be R/O at bedside Recommendations: Other ( neurosx to clear ok for PO trials? npo for now. When allowed to have po, suggest soft regular, thin liquids. Observe tolerance)
[2020-05-15] MEDS: PANTOPRAZOLE SODIUM 40 MG VIAL IVPUSH SCH (10:47)
[2020-05-15] MEDS ORDERED: PANTOPRAZOLE SODIUM 40 MG VIAL ONE (10:48)
--- NOTE | 2020-05-15 10:50 | PN ---
Progress Note, Physician Chief Complaint: Intracranial bleed History of Present Illness: 85-year-old female, with a history of hypertension, dementia, hyperlipidemia, now presenting with confusion. Found to have an intracranial bleed. Recent admission on 05/12 for emesis/UTI. Patient speaks Ukranian. mild dementia at baseline. CT head- large acute/subacute hemorrhage in the right frontal lobe, anteriorly measuring 4.4 x 3.1 cm with moderate surrounding edema and mild mass effect on the right frontal horn. Suggestion of minimial adjacent subarachnoid hemorrhage. ? faint/minimal subarachnoid hemorrhage at the right parieto-occipital junction NAD lethargic Opens eyes to sternal rub - Current Medication List Current Medications: Active Medications Acetaminophen (Ofirmev Injection -) 1,000 mg IVPB Q6H PRN PRN Reason: FEVER Stop: 05/16/20 06:23 Chlorhexidine Gluconate (Hibiclens For Decolonization -) 1 applic TP HS [facility] Nicardipine HCl 25 mg/ (Dextrose) 250 mls @ 25 mls/hr IVPB TITR SOTERO; Protocol Last Titration: 05/15/20 08:58 Dose: 2.5 mg/hr, 25 mls/hr Documented by: Potassium Chloride (Potassium Chloride 10 Meq Premix Ivpb -) 10 meq in 100 mls @ 100 mls/hr IVPB Q60M [facility] Stop: 05/15/20 11:44 Last Admin: 05/15/20 10:47 Dose: 100 mls/hr Documented by: Mupirocin (Bactroban Ointment (For Decolonization) -) 1 applic NS BID [facility] Stop: 05/20/20 09:59 Pantoprazole Sodium (Protonix Iv) 40 mg IVPUSH DAILY [facility] Last Admin: 05/15/20 10:47 Dose: 40 mg Documented by: - Objective Vital Signs: Vital Signs Temperature 98.0 F 05/15/20 07:15 Pulse Rate 98 H 05/15/20 08:58 Respiratory Rate 18 05/15/20 07:15 Blood Pressure 128/67 05/15/20 08:58 O2 Sat by Pulse Oximetry (%) 96 05/15/20 07:15 Constitutional: Yes: Well Nourished, No Distress, Calm Cardiovascular: Yes: Regular Rate and Rhythm Respiratory: Yes: Regular Gastrointestinal: Yes: Normal Bowel Sounds, Soft Genitourinary: Yes: Incontinence Musculoskeletal: Yes: Muscle Weakness Extremities: Yes: WNL Edema: No Peripheral Pulses WNL: Yes Neurological: Yes: Lethargy Labs: CBC, BMP 05/15/20 07:25 05/15/20 07:25 INR, PTT INR 1.22 (0.83-1.09) H 05/15/20 07:25 Problem List - Problems (1) AMS (altered mental status) Assessment/Plan: -CT head C-:Large acute/subacute hemorrhage in the right frontal lobe, anteriorly measuring 4.4 x 3.1 cm with moderate surrounding edema and mild mass effect on the right frontal horn. Close follow-up is needed to rule out any underlying mass lesion There is suggestion of minimal adjacent subarachnoid hemorrhage. There is also questionable faint/minimal subarachnoid hemorrhage at the right parieto- occipital junction. Small amount of intraventricular hemorrhage is layering in the occipital horns. -MRI brain w/wo Contrast -Neurosurgery consult -Check UA/UC Problems reviewed: Yes Code(s): R41.82 - ALTERED MENTAL STATUS, UNSPECIFIED Qualifiers: Altered mental status type: unspecified Qualified Code(s): R41.82 - Altered mental status, unspecified (2) Acute metabolic encephalopathy Problems reviewed: Yes Code(s): G93.41 - METABOLIC ENCEPHALOPATHY (3) Intracranial hemorrhage Assessment/Plan: as above -Speech pathology consult Problems reviewed: Yes Code(s): I62.9 - NONTRAUMATIC INTRACRANIAL HEMORRHAGE, UNSPECIFIED Assessment/Plan See problem list Spoke to niece Norsi (pt's sister's daughter,She is the [employer]), pt doesn't have children, her spouse passed 1 year ago.
--- NOTE | 2020-05-15 12:35 | PN ---
Physical Exam: SUBJECTIVE: Patient seen and examined OBJECTIVE: Vital Signs Period Temp Pulse Resp BP Sys/[place] Pulse Ox Last 24 Hr 98.0 F-102.3 F 88-110 18-26 125-191/62-92 95-98 GENERAL: The patient is awake, alert, and fully oriented, in no acute distress. HEAD: Normal with no signs of trauma. EYES: PERRL, extraocular movements intact, sclera anicteric, conjunctiva clear. No ptosis. ENT: Ears normal, nares patent, oropharynx clear without exudates, moist mucous membranes. NECK: Trachea midline, full range of motion, supple. LUNGS: Breath sounds equal, clear to auscultation bilaterally, no wheezes, no crackles, no accessory muscle use. HEART: Regular rate and rhythm, S1, S2 without murmur, rub or gallop. ABDOMEN: Soft, nontender, nondistended, normoactive bowel sounds, no guarding, no rebound, no hepatosplenomegaly, no masses. EXTREMITIES: 2+ pulses, warm, well-perfused, no edema. NEUROLOGICAL: Cranial nerves II through XII grossly intact. Normal speech, gait not observed. PSYCH: Normal mood, normal affect. SKIN: Warm, dry, normal turgor, no rashes or lesions noted Laboratory Results - last 24 hr 05/14/20 05/14/20 05/14/20 17:26 18:05 18:05 WBC 13.5 H RBC 4.66 Hgb 15.0 Hct 44.3 MCV 95.0 MCH 32.2 MCHC 33.9 RDW 12.6 Plt Count 257 MPV 8.3 Absolute Neuts (auto) 10.5 H Neutrophils % 77.5 Lymphocytes % 12.9 D Monocytes % 9.2 Eosinophils % 0.1 D Basophils % 0.3 Nucleated RBC % 0 PT with INR INR Sodium 132 L Potassium 3.5 Chloride 98 Carbon Dioxide 26 Anion Gap 9 BUN 15.8 Creatinine 0.7 Est GFR (CKD-EPI)AfAm 93.52 Est GFR (CKD-EPI)NonAf 80.69 Random Glucose 114 H Lactic Acid 1.4 Calcium 9.2 Phosphorus Magnesium Total Bilirubin 1.2 H AST 28 ALT 33 Alkaline Phosphatase 84 Troponin I < 0.02 Total Protein 7.4 Albumin 3.6 Triglycerides Cholesterol Total LDL Cholesterol HDL Cholesterol Urine Color Urine Appearance Urine pH Ur Specific [place] Urine Protein Urine Glucose (UA) Urine Ketones Urine Blood Urine Nitrite Urine Bilirubin Urine Urobilinogen Ur Leukocyte Esterase 05/14/20 05/15/20 05/15/20 18:30 07:25 07:25 WBC 12.1 H RBC 4.45 Hgb 14.2 Hct 41.6 MCV 93.5 MCH 31.8 MCHC 34.1 RDW 12.6 Plt Count 254 MPV 8.3 Absolute Neuts (auto) 10.2 H Neutrophils % 84.5 H Lymphocytes % 7.7 L D Monocytes % 7.7 Eosinophils % 0.0 D Basophils % 0.1 Nucleated RBC % 0 PT with INR 14.40 H INR 1.22 H Sodium Potassium Chloride Carbon Dioxide Anion Gap BUN Creatinine Est GFR (CKD-EPI)AfAm Est GFR (CKD-EPI)NonAf Random Glucose Lactic Acid Calcium Phosphorus Magnesium Total Bilirubin AST ALT Alkaline Phosphatase Troponin I Total Protein Albumin Triglycerides Cholesterol Total LDL Cholesterol HDL Cholesterol Urine Color Yellow Urine Appearance Clear Urine pH 6.0 Ur Specific [place] 1.022 Urine Protein Negative Urine Glucose (UA) Trace Urine Ketones Negative Urine Blood Negative Urine Nitrite Negative Urine Bilirubin Negative Urine Urobilinogen 4.0 e.u/dl H Ur Leukocyte Esterase Negative 05/15/20 07:25 WBC RBC Hgb Hct MCV MCH MCHC RDW Plt Count MPV Absolute Neuts (auto) Neutrophils % Lymphocytes % Monocytes % Eosinophils % Basophils % Nucleated RBC % PT with INR INR Sodium 137 Potassium 3.3 L Chloride 102 Carbon Dioxide 26 Anion Gap 8 BUN 18.0 Creatinine 1.2 Est GFR (CKD-EPI)AfAm 48.74 Est GFR (CKD-EPI)NonAf 42.05 Random Glucose 168 H Lactic Acid Calcium 8.7 Phosphorus 3.5 Magnesium 2.3 Total Bilirubin 0.9 AST 22 ALT 31 Alkaline Phosphatase 70 Troponin I Total Protein 6.6 Albumin 3.2 L Triglycerides 118 Cholesterol 172 Total LDL Cholesterol 92 HDL Cholesterol 55 Urine Color Urine Appearance Urine pH Ur Specific [place] Urine Protein Urine Glucose (UA) Urine Ketones Urine Blood Urine Nitrite Urine Bilirubin Urine Urobilinogen Ur Leukocyte Esterase Active Medications Generic Name Dose Route Start Last Admin Trade Name Freq PRN Reason Stop Dose Admin Acetaminophen 1,000 mg 05/15/20 06:22 Ofirmev Injection - IVPB 05/16/20 06:23 Q6H PRN FEVER Chlorhexidine Gluconate 1 applic 09/03/20 22:00 Hibiclens For Decolonization - TP HS SOT[facility] Nicardipine HCl 25 mg/ 250 mls @ 25 mls/hr 05/15/20 02:30 05/15/20 10:54 Dextrose IVPB 0 mg/hr TITR SOTERO 0 mls/hr Titration Protocol 2.5 MG/HR Mupirocin 1 applic 05/15/20 10:00 Bactroban Ointment (For Decolonization) - NS 05/20/20 09:59 BID SOTERO Pantoprazole Sodium 40 mg 05/15/20 10:00 05/15/20 10:47 Protonix Iv IVPUSH 40 mg DAILY SOTERO Administration ASSESSMENT/PLAN: ATTENDING PHYSICIAN STATEMENT I saw and evaluated the patient. I reviewed the resident's note and discussed the case with the resident. I agree with the resident's findings and plan as documented. SUBJECTIVE: OBJECTIVE: ASSESSMENT AND PLAN:
--- NOTE | 2020-05-15 13:00 | PN ---
Teaching Attending Note Name of Resident: Negro Owen ATTENDING PHYSICIAN STATEMENT I saw and evaluated the patient. I reviewed the resident's note and discussed the case with the resident. I agree with the resident's findings and plan as documented. SUBJECTIVE: Pt seen and examined in the ICU. Lethargic but arousable. Moving all extrem ities, but appears weaker on right. OBJECTIVE: Vital Signs Period Temp Pulse Resp BP Sys/Montelongo Pulse Ox Last 24 Hr 98.0 F-102.3 F 88-110 18-26 125-191/62-92 95-98 Intake & Output 05/12/20 05/13/20 05/14/20 05/15/20 23:59 23:59 23:59 23:59 Weight 72.575 kg Gen: lethargic but arousable Heart: RRR Lung: decreased breath sounds at the bases Abd: soft, nontender Ext: no edema CBC, BMP 05/15/20 07:25 05/15/20 07:25 Active Medications Acetaminophen (Ofirmev Injection -) 1,000 mg IVPB Q6H PRN PRN Reason: FEVER Stop: 05/16/20 06:23 Chlorhexidine Gluconate (Hibiclens For Decolonization -) 1 applic TP HS [facility] Nicardipine HCl 25 mg/ (Dextrose) 250 mls @ 25 mls/hr IVPB TITR [facility]; Protocol Last Titration: 05/15/20 10:54 Dose: 0 mg/hr, 0 mls/hr Documented by: Mupirocin (Bactroban Ointment (For Decolonization) -) 1 applic NS BID [facility] Stop: 05/20/20 09:59 Pantoprazole Sodium (Protonix Iv) 40 mg IVPUSH DAILY [facility] Last Admin: 05/15/20 10:47 Dose: 40 mg Documented by: ASSESSMENT AND PLAN: Intracranial Hemorrhage r/o Pneumonia HTN Hyperlipidemia Dementia - MRI brain - neuro/neurosurgery work up in progress - empiric antibiotics - f/u cultures - BP control with cardene gtt - aspiration precautions - ICU monitoring critical care time spent in reviewing chart, evaluating patient and formulating plan 35 min
--- NOTE | 2020-05-15 13:10 | PN ---
Progress Note (short form) - Note Progress Note: ID CONSULT DICTATED FEVER/ LEUKOCYTOSIS ? 2/2 INTRACRANIAL HEMORRHAGE AWAIT CULTURES OBSERVE OFF ANTIBIOTICS ASP PRECAUTIONS
[2020-05-15] MEDS ORDERED: CEFTRIAXONE 1 GM in DEXTROSE 5%-WATER - 50 ML IVPB SCH (13:15)
--- NOTE | 2020-05-15 13:39 | CONS ---
INFECTIOUS DISEASE CONSULTATION DATE OF CONSULTATION: DATE OF DICTATION: 05/15/2020 The patient is an 84-year-old female who is evaluated for fever and leukocytosis. History was obtained from the chart as she is not conversant. She was admitted to the hospital on May 14, 2020, with altered mental status. According to the note, she had been seen in the emergency room on May 12, 2020, with nausea and vomiting. She was diagnosed with a urinary tract infection and was prescribed Keflex. As an outpatient, she became increasingly lethargic and somnolent. She was taken to the emergency room where her temperature was noted to be 102.3. CAT scan of the head shows a large right frontal intracranial hemorrhage. Her course was complicated by fever to 102.3, elevated white blood cell count. Cultures were obtained. She was empirically treated with ceftriaxone and vancomycin. At the present time, she is in the intensive care unit. She is awake, but not verbally responsive. She is in no acute respiratory distress. She does not appear acutely toxic. Cultures have been obtained. PAST MEDICAL HISTORY: Positive for hypertension, hyperlipidemia, dementia. ALLERGIES: No known allergies. MEDICATIONS: Ceftriaxone, metronidazole, nicardipine, Tylenol, Protonix. SOCIAL HISTORY: She is a former smoker. She resides in the community. She has had no recent hospitalizations. SYSTEMS REVIEW: Neurologic: As per HPI. Cardiac: Negative chest pain and palpitations. Respiratory: Negative cough or sputum production. Gastrointestinal: Negative vomiting or diarrhea. Genitourinary: Negative for urinary tract infection. LABORATORY DATA: White count on admission 13.5, presently 12.1; hematocrit 41.6; platelets 254. Creatinine 1.2. INR 1.2. Liver enzymes normal. Urinalysis negative. Chest x-ray negative for acute infiltrate. PHYSICAL EXAMINATION: General: She is awake. She is not verbally responsive. She responds to tactile stimulus. Vital Signs: Temperature 98.0, T-max 102.3; blood pressure 125/62; pulse 88, regular; respirations 20 per minute. HEENT: Sclerae anicteric. Heart: Sounds S1, S2. Lungs: Grossly clear. Poor inspiratory effort. Abdomen: Obese, soft, nontender. Extremities: Negative for edema. Skin: Intact. IMPRESSION: 1. Fever, leukocytosis, likely secondary to intracranial hemorrhage. 2. Status post right frontal intracranial bleed. 3. History of dementia. 4. Leukocytosis. Will observe off antibiotic therapy. Await cultures. Aspiration precautions. Supportive measures. Will follow. Thank you for the kind referral. RHONDA BAILON M.D. [id number]
--- NOTE | 2020-05-15 15:27 | EKG ---
Test Reason : Blood Pressure : / mmHG Vent. Rate : 081 BPM Atrial Rate : 081 BPM P-R Int : 188 ms QRS Dur : 074 ms QT Int : 390 ms P-R-T Axes : 058 -01 006 degrees QTc Int : 453 ms NORMAL SINUS RHYTHM MINIMAL VOLTAGE CRITERIA FOR LVH, MAY BE NORMAL VARIANT NONSPECIFIC ST ABNORMALITY ABNORMAL ECG WHEN COMPARED WITH ECG OF 12-MAY-2020 15:59, NO SIGNIFICANT CHANGE WAS FOUND Confirmed by PAULA MARSHALL, CRISTOFER ([id number]) on 05/15/2020 3:27:21 PM Referred By: Confirmed By:CRISTOFER MITCHELL MD
[2020-05-15 15:31] VITALS: BMI 26.1
[2020-05-15] MEDS ORDERED: LORazepam 2 MG/ML SDV VIAL IVPUSH ONE (16:28)
[2020-05-15] MEDS: MUPIROCIN 2% TOPICAL OINTMENT FOR DECOLONIZATION NS SCH ×2 (19:56→22:17)
[2020-05-15] MEDS ORDERED: CHLORHEXIDINE GLUCONATE 4% CLEANSER FOR DECOLONIZATION TP SCH ×2 (22:00)
[2020-05-16 07:19] LABS: BASO % 0.1 % (0-2.0); EOS % 0.2 % (0-4.5); HEMATOCRIT 40.8 % (32.4-45.2); HEMOGLOBIN 13.7 GM/dL (10.7-15.3); LYMPH % 8.8 % (8-40); MCH 31.7 pg (25.7-33.7); MCHC 33.6 g/dl (32.0-36.0); MEAN CELL VOLUME 94.5 fl (80-96); MEAN PLT VOLUME 8.7 fl (7.5-11.1); MONO % 7.7 % (3.8-10.2); NEUT % 83.2 % (42.8-82.8); PLATELET COUNT 219 K/MM3 (134-434); RBC 4.31 M/mm3 (3.60-5.2); RDW 12.7 % (11.6-15.6); WHITE BLOOD COUNT 12.5 K/mm3 (4.0-10.0)
[2020-05-16 07:39] LABS: BLOOD UREA NITROGEN 38.1 mg/dL (7-18); CALCIUM 8.5 mg/dL (8.5-10.1); CREATININE 3.1 mg/dL (0.55-1.3); MAGNESIUM 2.4 mg/dL (1.8-2.4); PHOSPHOROUS 5.5 mg/dL (2.5-4.9); POTASSIUM 3.8 mmol/L (3.5-5.1); TOT PROT 6.2 g/dl (6.4-8.2)
[2020-05-16] MEDS: PANTOPRAZOLE SODIUM 40 MG VIAL IVPUSH SCH (10:04)
[2020-05-16] MEDS: NICARDIPINE 25 MG in DEXTROSE 5%-WATER - 240 ML IVPB SCH (10:04)
--- NOTE | 2020-05-16 10:39 | PN ---
Progress Note, [employer] - Note Progress Note: MRI noted.MRI brain w/wo Contrast:Acute approximately 4 x 3 cm right frontal i ntraparenchymal hemorrhage with mild to moderate perihemorrhagic edema. There is resultant minimal contralateral midline displacement. Trace amount of acute right frontal subdural blood ventrally. Small amount of acute blood within the occipital horns of the lateral ventricles. Trace amounts of acute subarachnoid blood along the occipital and temporal lobes bilaterally Multiple small bilateral cerebral and cerebellar chronic microbleeds are seen which could be on the basis of amyloid angiopathy. No obvious underlying neoplastic lesion is identified within the limitations of the exam. Correlation with 4 week follow-up contrast enhanced MRI or CT is suggested to document lack of an underlying lesion following resolution of the previously described acute right frontal intrapa renchymal hemorrhage Pt kept NPO except for medication. Pt is now verbalizing intermittently, although language function can not be determined due to language barrier. Nursing reports family said she was speaking but not expressing herself appropriately yesterday. Apraxia, sometimes verbalizing, sometimes no response. Pt unable to repeat goodbye to me in Ukranian. Swallow/mastication reassessed seems unimpaired. IMP- I suspect she has Aphasia/Apraxia, (language barrier) understands and imitates gesture. No dysarthria Swallowing intact To reassess with family or lath hand when possible. Rec-Reg diet/thin liquid Acute rehab
--- NOTE | 2020-05-16 10:58 | PN ---
Progress Note, Physician Chief Complaint: Intracranial bleed History of Present Illness: 85-year-old female, with a history of hypertension, dementia, hyperlipidemia, now presenting with confusion. Found to have an intracranial bleed. Recent admission on 05/12 for emesis/UTI. Patient speaks Ukranian. mild dementia at baseline. CT head- large acute/subacute hemorrhage in the right frontal lobe, anteriorly measuring 4.4 x 3.1 cm with moderate surrounding edema and mild mass effect on the right frontal horn. Suggestion of minimial adjacent subarachnoid hemorrhage. ? faint/minimal subarachnoid hemorrhage at the right parieto-occipital junction NAD awake and alert, smiling, pointing at TV- aphasia? Passed bedside swallow MRI brain w/wo Contrast:Acute approximately 4 x 3 cm right frontal intraparenchymal hemorrhage with mild to moderate perihemorrhagic edema. There is resultant minimal contralateral midline displacement. Trace amount of acute right frontal subdural blood ventrally. Small amount of acute blood within the occipital horns of the lateral ventricles. Trace amounts of acute subarachnoid blood along the occipital and temporal lobes bilaterally Multiple small bilateral cerebral and cerebellar chronic microbleeds are seen which could be on the basis of amyloid angiopathy. No obvious underlying neoplastic lesion is identified within the limitations of the exam. Correlation with 4 week follow-up contrast enhanced MRI or CT is suggested to document lack of an underlying lesion following resolution of the previously described acute right frontal intrapa renchymal hemorrhage. Seen by NS, no surgical intervention recommended at this time - Current Medication List Current Medications: Active Medications Chlorhexidine Gluconate (Hibiclens For Decolonization -) 1 applic TP HS [facility] Last Admin: 05/15/20 22:20 Dose: 1 applic Documented by: Nicardipine HCl 25 mg/ (Dextrose) 250 mls @ 25 mls/hr IVPB TITR [facility]; Protocol Last Admin: 05/16/20 10:04 Dose: Not Given Documented by: Mupirocin (Bactroban Ointment (For Decolonization) -) 1 applic NS BID [facility] Stop: 05/20/20 09:59 Last Admin: 05/15/20 22:17 Dose: Not Given Documented by: Pantoprazole Sodium (Protonix Iv) 40 mg IVPUSH DAILY [facility] Last Admin: 05/16/20 10:04 Dose: 40 mg Documented by: - Objective Vital Signs: Vital Signs Temperature 98.6 F 05/16/20 06:00 Pulse Rate 86 05/16/20 08:00 Respiratory Rate 20 05/16/20 09:06 Blood Pressure 151/61 05/16/20 08:00 O2 Sat by Pulse Oximetry (%) 99 05/16/20 09:06 Constitutional: Yes: Well Nourished, No Distress, Calm Cardiovascular: Yes: Regular Rate and Rhythm Respiratory: Yes: Regular, CTA Bilaterally Gastrointestinal: Yes: Normal Bowel Sounds, Soft Genitourinary: Yes: Incontinence Musculoskeletal: Yes: Muscle Weakness Extremities: Yes: Other (generalized atrophy) Edema: No Peripheral Pulses WNL: Yes Neurological: Yes: Aphasia, Lethargy Labs: CBC, BMP 05/16/20 05:50 05/16/20 05:50 INR, PTT INR 1.22 (0.83-1.09) H 05/15/20 07:25 Problem List - Problems (1) AMS (altered mental status) Assessment/Plan: -CT head C-:Large acute/subacute hemorrhage in the right frontal lobe, anteriorly measuring 4.4 x 3.1 cm with moderate surrounding edema and mild mass effect on the right frontal horn. Close follow-up is needed to rule out any underlying mass lesion There is suggestion of minimal adjacent subarachnoid hemorrhage. There is also questionable faint/minimal subarachnoid hemorrhage at the right parieto- occipital junction. Small amount of intraventricular hemorrhage is layering in the occipital horns. -MRI brain w/wo Contrast:Acute approximately 4 x 3 cm right frontal intraparenchymal hemorrhage with mild to moderate perihemorrhagic edema. There is resultant minimal contralateral midline displacement. Trace amount of acute right frontal subdural blood ventrally. Small amount of acute blood within the occipital horns of the lateral ventricles. Trace amounts of acute subarachnoid blood along the occipital and temporal lobes bilaterally Multiple small bilateral cerebral and cerebellar chronic microbleeds are seen which could be on the basis of amyloid angiopathy. No obvious underlying neoplastic lesion is identified within the limitations of the exam. Correlation with 4 week follow-up contrast enhanced MRI or CT is suggested to document lack of an underlying lesion following resolution of the previously described acute right frontal intrapa renchymal hemorrhage. -Neurosurgery consult -UA/UC negative Problems reviewed: Yes Code(s): R41.82 - ALTERED MENTAL STATUS, UNSPECIFIED Qualifiers: Altered mental status type: unspecified Qualified Code(s): R41.82 - Altered mental status, unspecified (2) Acute metabolic encephalopathy Problems reviewed: Yes Code(s): G93.41 - METABOLIC ENCEPHALOPATHY (3) Intracranial hemorrhage Assessment/Plan: as above -Speech pathology consult -Repeat MRI in 4 weeks Problems reviewed: Yes Code(s): I62.9 - NONTRAUMATIC INTRACRANIAL HEMORRHAGE, UNSPECIFIED (4) KIET (acute kidney injury) Assessment/Plan: -Cr with sudden elevation to 3.1 -IVF -Monitor trend Problems reviewed: Yes Code(s): N17.9 - ACUTE KIDNEY FAILURE, UNSPECIFIED (5) HTN (hypertension) Assessment/Plan: -BP goal<160/90 -Start Toprol 50 mg po daily, first dose now Problems reviewed: Yes Code(s): I10 - ESSENTIAL (PRIMARY) HYPERTENSION (6) Leukocytosis Assessment/Plan: -Hematology consult -Afebrile now -Seen by ID Problems reviewed: Yes Code(s): D72.829 - ELEVATED WHITE BLOOD CELL COUNT, UNSPECIFIED Assessment/Plan See problem list
--- NOTE | 2020-05-16 11:35 | PN ---
Teaching Attending Note Name of Resident: Danilo Melgar ATTENDING PHYSICIAN STATEMENT I saw and evaluated the patient. I reviewed the resident's note and discussed the case with the resident. I agree with the resident's findings and plan as documented. SUBJECTIVE: Pt seen and examined in the ICU. More alert, awake today. MRI brain showing unch anged hemorrhage. OBJECTIVE: Vital Signs Period Temp Pulse Resp BP Sys/Montelongo Pulse Ox Last 24 Hr 98.0 F-99.2 F 72-94 20-24 101-165/54-98 83-100 Intake & Output 05/13/20 05/14/20 05/15/20 05/16/20 23:59 23:59 23:59 23:59 Intake Total 100 Output Total 200 Balance 100 -200 Weight 72.575 kg 69.1 kg Gen: more alert, awake Heart: RRR Lung: decreased breath sounds at the bases Abd: soft, nontender Ext: no edema CBC, BMP 05/16/20 05:50 05/16/20 05:50 Active Medications Atorvastatin Calcium (Lipitor -) 20 mg PO HS [facility] Chlorhexidine Gluconate (Hibiclens For Decolonization -) 1 applic TP HS [facility] Last Admin: 05/15/20 22:20 Dose: 1 applic Documented by: Nicardipine HCl 25 mg/ (Dextrose) 250 mls @ 25 mls/hr IVPB TITR [facility]; Protocol Last Admin: 05/16/20 10:04 Dose: Not Given Documented by: Sodium Chloride (Normal Saline -) 1,000 mls @ 83 mls/hr IV ASDIR [facility] Metoprolol Tartrate (Lopressor -) 50 mg PO DAILY [facility] Montelukast Sodium (Singulair -) 10 mg PO HS [facility] Mupirocin (Bactroban Ointment (For Decolonization) -) 1 applic NS BID [facility] Stop: 05/20/20 09:59 Last Admin: 05/15/20 22:17 Dose: Not Given Documented by: ASSESSMENT AND PLAN: Intracranial Hemorrhage HTN Hyperlipidemia Dementia - BP control, resume home meds - hold all anticoagulation, antiplatelets - PO as tolerated - aspiration precautions - can monitor on floor
[2020-05-16] MEDS ORDERED: SODIUM CHLORIDE 1,000 ML IV SCH (11:45)
--- NOTE | 2020-05-16 12:50 | CONSULT ---
Consult - text type - Consultation Consultation Note: NEUROSURGERY CONSULTATION Lizet Vasquez is an 84 year old Ukranian female with a past medical history of Hypertension, Hyperlipidemia. ?age-associated Memory Loss. Who presents to the ED for AMS. Per ED records: patient's last known well was last Tuesday05/09/2020. Patient was seen in the ED on 05/12 for emesis, was found to have a UTI. She was discharged on Keflex 500mg po BID. Patient's niece reports worsening of mental status since being discharged from the ED on 05/12. At baseline, she has mild memory deficits but is well-oriented and interactive; speaks Ukranian. Today patient is not responsive to verbal commands, but will follow some commands with gestures. She is also disoriented - not responding to questions regarding name, day, or location; but did express that it was past 6 pm by looking at clock on the wall. The niece denies patient having recent falls, weakness, changes in strength/sensation, or vision changes. Per the niece, she denies patient having chills, cough, headache, SOB, CP, palpitations, abdominal pain, diarrhea, melena, hematochezia. Patient is unable to provide HPI due to her clinical condition, memory loss Patient examined in the ED and again in ICU. She is awake and alert. Appropriately interactive given language barrier. No suggestion of diminished level of cognition associated with the Right frontal lesion. CT and MRI suggest a 3x4 cm ICH in the Right frontal lobe with possible underlying lesion. No clear underlying pathology identified. Patient is apparently at her Neurological baseline. At this point, there is no urgent Neurosurgical intervention which is indicated. Patient may be discharged from ICU to Med/surg or telemetry. Agree with recommendation for delayed MRI (4 weeks). GI/DVT prophylaxis. Case discussed with niemeka. Will follow.
[2020-05-16] MEDS ORDERED: PT OWN MED DRAWER 7, Y5N ONE (13:00)
[2020-05-16] MEDS: MUPIROCIN 2% TOPICAL OINTMENT FOR DECOLONIZATION NS SCH (13:05)
--- NOTE | 2020-05-16 16:56 | PN ---
Progress Note, Physician - Current Medication List Current Medications: Active Medications Atorvastatin Calcium (Lipitor -) 20 mg PO HS [facility] Chlorhexidine Gluconate (Hibiclens For Decolonization -) 1 applic TP HS [facility] Last Admin: 05/15/20 22:20 Dose: 1 applic Documented by: Sodium Chloride (Normal Saline -) 1,000 mls @ 83 mls/hr IV ASDIR [facility] Last Admin: 05/16/20 12:08 Dose: 83 mls/hr Documented by: Metoprolol Succinate (Toprol Xl -) 50 mg PO DAILY [facility] Montelukast Sodium (Singulair -) 10 mg PO HS [facility] Mupirocin (Bactroban Ointment (For Decolonization) -) 1 applic NS BID [facility] Stop: 05/20/20 09:59 Last Admin: 05/16/20 13:05 Dose: 1 applic Documented by: - Objective Vital Signs: Vital Signs Temperature 98.1 F 05/16/20 14:00 Pulse Rate 93 H 05/16/20 14:00 Respiratory Rate 19 05/16/20 14:00 Blood Pressure 176/65 H 05/16/20 14:00 O2 Sat by Pulse Oximetry (%) 94 L 05/16/20 14:00 Labs: CBC, BMP 05/16/20 05:50 05/16/20 05:50 INR, PTT INR 1.22 (0.83-1.09) H 05/15/20 07:25
--- NOTE | 2020-05-16 18:20 | PN ---
Physical Exam: SUBJECTIVE: Patient seen and examined. No pressors. NO overnight events. OBJECTIVE: Vital Signs Period Temp Pulse Resp BP Sys/Montelongo Pulse Ox Last 24 Hr 98.0 F-98.6 F 73-94 19-24 112-176/54-98 83-100 GENERAL: The patient is awake, alert, and fully oriented, in no acute distress. HEENT: NC,AT, No ptosis. moist mucous membranes. LUNGS: Breath sounds equal, clear to auscultation bilaterally, no wheezes, no crackles, no accessory muscle use. HEART: Regular rate and rhythm, S1, S2 without murmur, rub or gallop. ABDOMEN: Soft, nontender, nondistended, normoactive bowel sounds, no guarding, no rebound EXTREMITIES: 2+ pulses, warm, well-perfused, no edema. NEUROLOGICAL: responds to stimuli, gait not observed. Laboratory Results - last 24 hr 05/15/20 05/15/20 05/15/20 03:40 18:26 22:14 WBC RBC Hgb Hct MCV MCH MCHC RDW Plt Count MPV Absolute Neuts (auto) Neutrophils % Lymphocytes % Monocytes % Eosinophils % Basophils % Nucleated RBC % Sodium Potassium Chloride Carbon Dioxide Anion Gap BUN Creatinine Est GFR (CKD-EPI)AfAm Est GFR (CKD-EPI)NonAf POC Glucometer 115 115 Random Glucose Calcium Phosphorus Magnesium Total Bilirubin AST ALT Alkaline Phosphatase Total Protein Albumin COVID-19 (ABDON) Not detected 05/16/20 05/16/20 05:50 05:50 WBC 12.5 H RBC 4.31 Hgb 13.7 Hct 40.8 MCV 94.5 MCH 31.7 MCHC 33.6 RDW 12.7 Plt Count 219 MPV 8.7 Absolute Neuts (auto) 10.4 H Neutrophils % 83.2 H Lymphocytes % 8.8 Monocytes % 7.7 Eosinophils % 0.2 D Basophils % 0.1 Nucleated RBC % 0 Sodium 136 Potassium 3.8 Chloride 102 Carbon Dioxide 25 Anion Gap 9 BUN 38.1 H Creatinine 3.1 H Est GFR (CKD-EPI)AfAm 15.47 Est GFR (CKD-EPI)NonAf 13.35 POC Glucometer Random Glucose 112 H Calcium 8.5 Phosphorus 5.5 H Magnesium 2.4 Total Bilirubin 1.0 AST 17 ALT 27 Alkaline Phosphatase 67 Total Protein 6.2 L Albumin 3.0 L COVID-19 (ABDON) Active Medications Generic Name Dose Route Start Last Admin Trade Name Freq PRN Reason Stop Dose Admin Atorvastatin Calcium 20 mg 05/16/20 22:00 Lipitor - PO HS [facility] Chlorhexidine Gluconate 1 applic 05/15/20 22:00 05/15/20 22:20 Hibiclens For Decolonization - TP 1 applic HS [facility] Administration Sodium Chloride 1,000 mls @ 83 mls/hr 05/16/20 11:45 05/16/20 12:08 Normal Saline - IV 83 mls/hr ASDIR [facility] Administration Metoprolol Succinate 50 mg 05/16/20 17:00 05/16/20 17:27 Toprol Xl - PO 50 mg DAILY [facility] Administration Montelukast Sodium 10 mg 05/16/20 22:00 Singulair - PO HS [facility] Mupirocin 1 applic 05/15/20 10:00 05/16/20 13:05 Bactroban Ointment (For Decolonization) - NS 05/20/20 09:59 1 applic BID [facility] Administration ASSESSMENT/PLAN: 84 YO F PMH HLD & HTN presented with AMS. Was found to have a frontal lobe hemorrhage. Neuro: -MRI: 4X3 R frontal intraparenchymal hemorrhage with mild-moderate perihemorrhagic edema. Minimal contralateral midlien displacment. -s/p Keppra and cardine drip with goal systolic BP < 160 -neuro checks Q2H Cardio: c/w home med toprol -hold home losartan 2/2 Cr 3.1 Pulm: - maintain O2 sat > 95% ID - s/p vanc and ceftriaxone -urine/blood culture pending Renal: - mccoy -Cr increased from 1.2 to 3.1 GI - 40 protonix IV daily for ppx DVT Ppx: - AC NOT given 2/2 intracerebral hemorhage FEN: 1/2 NS + 20 meq KCL monitor lytes low sodium diet Dispo transfer to med surg Visit type - Emergency Visit Emergency Visit: Yes ED Registration Date: 05/14/20 Care time: The patient presented to the Emergency Department on the above date and was hospitalized for further evaluation of their emergent condition. - New Patient This patient is new to me today: No - Critical Care Critical Care patient: No - Medication Review Med list reviewed for High Risk Meds patients 65 and older: Yes ATTENDING PHYSICIAN STATEMENT I saw and evaluated the patient. I reviewed the resident's note and discussed the case with the resident. I agree with the resident's findings and plan as documented. SUBJECTIVE: OBJECTIVE: ASSESSMENT AND PLAN:
--- NOTE | 2020-05-16 18:29 | HOSP ---
Physical Examination Vital Signs: Vital Signs Temperature 98.1 F 05/16/20 14:00 Pulse Rate 93 H 05/16/20 14:00 Respiratory Rate 19 05/16/20 14:00 Blood Pressure 176/65 H 05/16/20 14:00 O2 Sat by Pulse Oximetry (%) 94 L 05/16/20 14:00 Labs: CBC, BMP 05/16/20 05:50 05/16/20 05:50
--- NOTE | 2020-05-16 18:50 | CON.NEP ---
Consult Consult Specialty:: Nephrology Referred by:: LAURA Limon Reason for Consultation:: Acute kidney injury - History of Present Illness Chief Complaint: altered mental status History of Present Illness: This is a 84 year old woman with history of hypertension and hyperlipidemia with recently treated UTI who presented with altered mental status and found to have ICH/SAH and developed acute kidney injury with serum Cr of 3.1. Pt with normal renal function at baseline. Seen and examined in the ICU. She is awake and alert but not answering questions. No contrast exposure noted. No NSAIDs given. She was on a ARB. She was making urine via an external catheter. 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) Cardio/Vascular: Yes: HTN, Hyperlipdemia ...: No - Past Surgical History Past Surgical History: Yes: None - Alcohol/Substance Use Hx Alcohol Use: No History of Substance Use: reports: None - Smoking History Smoking history: Never smoked Have you smoked in the past 12 months: No Aproximately how many cigarettes per day: 0 If you are a former smoker, when did you quit?: 20y - Social History ADL: Family Assistance History of Recent Travel: No Home Medications - Allergies Allergies/Adverse Reactions: Allergies Allergy/AdvReac Type Severity Reaction Status Date / Time No Known Drug Allergies Allergy Verified 01/07/15 16:46 - Home Medications Home Medications: Ambulatory Orders Cephalexin [Keflex] 500 mg PO BID 10 Days #20 capsule 05/12/20 Losartan Potassium 50 mg PO DAILY 05/14/20 Atorvastatin Ca [Lipitor] 20 mg PO HS 05/16/20 Metoprolol Tartrate [Lopressor -] 50 mg PO DAILY 05/16/20 Montelukast Sodium [Singulair] 10 mg PO DAILY 05/16/20 Family Medical History Family History: Unable to Obtain Review of Systems Unable to obtain ROS, reason: AMS Nephrology Consult - Height Height: 5 ft 4 in - Weight Weight: 68.946 kg - BMI Body Mass Index (BMI): 26.1 - Lab Results CBC,BMP: CBC, BMP 05/16/20 05:50 05/16/20 05:50 Anion Gap: Anion Gap Anion Gap 9 MMOL/L (8-16) 05/16/20 05:50 - Physical Examination Vital Signs: Vital Signs Temperature 98.1 F 05/16/20 18:00 Pulse Rate 88 05/16/20 18:00 Respiratory Rate 18 05/16/20 18:00 Blood Pressure 159/78 05/16/20 18:00 O2 Sat by Pulse Oximetry (%) 94 L 05/16/20 18:00 Constitutional: Yes: No Distress Eyes: Yes: Conjunctiva Clear HENT: Yes: Atraumatic Neck: Yes: Supple Cardiovascular: Yes: Regular Rate and Rhythm Respiratory: Yes: Regular, CTA Bilaterally. No: Rales, Rhonchi Gastrointestinal: Yes: Soft. No: Tenderness Renal/: Yes: Bladder Distention. No: CVA Tenderness - Left, CVA Tenderness - Right, Karimi Present Extremities: No: Cyanosis Edema: No Neurological: Yes: Alert Assessment/Plan 84 year old woman with history of hypertension and hyperlipidemia with recently treated UTI who presented with altered mental status and found to have ICH/SAH and developed acute kidney injury with serum Cr of 3.1. 1. Acute kidney injury due to bladder outlet obstruction in setting of ICH 2. ICH/SAH 3. Hypertension 4. Hyperlipdiemia Bladder scan done at the bedside showed > 1L retention in bladder Unclear why she is in acute retention, neurologic effect following ICH? Will place a Karimi for management of retention hold ARB until renal function normalizes continue hypotonic fluids with KCL Trend renal function daily Neurology and neurosurgery follow up Thank you Shayne Bacon DO
[2020-05-16] MEDS ORDERED: SODIUM CHLORIDE 0.45%/POT 20 MEQ/1,000 ML INFUS.BAG IV SCH (19:00)
[2020-05-16] MEDS: ATORVASTATIN CA 20 MG TABLET (FP) PO SCH ×2 (21:08→21:17)
[2020-05-16] MEDS ORDERED: MONTELUKAST NA 10 MG TABLET PO SCH (22:00)
[2020-05-16] MEDS ORDERED: ATORVASTATIN CA 20 MG TABLET (FP) PO SCH (22:00)
--- NOTE | 2020-05-16 23:23 | PN ---
Progress Note, Physician History of Present Illness: AWAKE IN BED NO ACUTE DISTRESS NON TOXIC APPEARING AFEBRILE C/S PRELIM (-) - Current Medication List Current Medications: Active Medications Atorvastatin Calcium (Lipitor -) 20 mg PO [facility] Last Admin: 05/16/20 21:17 Dose: Not Given Documented by: Potassium Chloride/Sodium Chloride (1/2ns+20meq Kcl) 20 meq in 1,000 mls @ 83 mls/hr IV ASDIR [facility] Last Admin: 05/16/20 21:08 Dose: 83 mls/hr Documented by: Metoprolol Succinate (Toprol Xl -) 50 mg PO DAILY [facility] Last Admin: 05/16/20 17:27 Dose: 50 mg Documented by: Montelukast Sodium (Singulair -) 10 mg PO [facility] - Objective Vital Signs: Vital Signs Temperature 98.4 F 05/16/20 20:00 Pulse Rate 81 05/16/20 20:00 Respiratory Rate 18 05/16/20 20:00 Blood Pressure 158/67 05/16/20 20:00 O2 Sat by Pulse Oximetry (%) 94 L 05/16/20 21:00 Constitutional: Yes: No Distress Eyes: Yes: Conjunctiva Clear Cardiovascular: Yes: Regular Rate and Rhythm, S1, S2 Respiratory: Yes: CTA Bilaterally Gastrointestinal: Yes: Normal Bowel Sounds, Soft Edema: No Labs: CBC, BMP 05/16/20 05:50 05/16/20 05:50 INR, PTT INR 1.22 (0.83-1.09) H 05/15/20 07:25 Assessment/Plan S/P ICH LEUKOCYTOSIS OBSERVE OFF ANTIBIOTICS
--- NOTE | 2020-05-17 01:08 | PN ---
Progress Note (short form) - Note Progress Note: 84 YO F PMH HLD & HTN presented with AMS. Was found to have a frontal lobe hemorrhage. Patient was seen in [facility] ED on 05/12 for vomiting. She was found to have a UTI incidentally, and discharged with Keflex 500 mg BID. Patient's living next of Kin is her niece, who reported that the patient had worsening mental status since her discharge. MRI showed 4X3 R frontal intraparenchymal hemorrhage with mild-moderate perihemorrhagic edema. Minimal contralateral midline displacement. Was given Keppra and cardine drip with goal systolic BP < 160. Pt's home medication, toprol, was restarted. Home losartan was stopped due to Cr increase from 1.2 to 3.1. 40 protonix IV daily was given for prophylaxis and anticoagulants were held due to the intracerebral hemorhage. Patient is stable. Patient transferred to [facility] surg GENERAL: The patient is awake, alert, and fully oriented, in no acute distress. HEENT: NC,AT, No ptosis. moist mucous membranes. LUNGS: Breath sounds equal, clear to auscultation bilaterally, no wheezes, no crackles, no accessory muscle use. HEART: Regular rate and rhythm, S1, S2 without murmur, rub or gallop. ABDOMEN: Soft, nontender, nondistended, normoactive bowel sounds, no guarding, no rebound EXTREMITIES: 2+ pulses, warm, well-perfused, no edema. NEUROLOGICAL: responds to stimuli, gait not observed.
[2020-05-17] MEDS ORDERED: SODIUM CHLORIDE 0.45%/POT 20 MEQ/1,000 ML INFUS.BAG IV SCH (04:18)
[2020-05-17 08:34] LABS: BASO % 0.4 % (0-2.0); EOS % 1.3 % (0-4.5); HEMATOCRIT 36.9 % (32.4-45.2); LYMPH % 12.6 % (8-40); MCH 33.2 pg (25.7-33.7); MCHC 35.3 g/dl (32.0-36.0); MEAN CELL VOLUME 94.1 fl (80-96); MEAN PLT VOLUME 8.3 fl (7.5-11.1); MONO % 8.2 % (3.8-10.2); NEUT % 77.5 % (42.8-82.8); PLATELET COUNT 195 K/MM3 (134-434); RBC 3.92 M/mm3 (3.60-5.2); RDW 12.6 % (11.6-15.6); WHITE BLOOD COUNT 10.7 K/mm3 (4.0-10.0)
[2020-05-17 08:38] LABS: INR 1.3 (0.83-1.09); PROTHROMBIN TIME (PATIENT) 15.4 SEC (9.7-13.0)
[2020-05-17 08:41] LABS: ACTIVATED PTT 25.8 SECONDS (25.2-36.5)
[2020-05-17 09:04] LABS: ALBUMIN 2.7 g/dl (3.4-5.0); BILIRUBIN,TOTAL 1.3 mg/dL (0.2-1); BLOOD UREA NITROGEN 20.9 mg/dL (7-18); CALCIUM 8.6 mg/dL (8.5-10.1); CREATININE 0.7 mg/dL (0.55-1.3); MAGNESIUM 2.5 mg/dL (1.8-2.4); PHOSPHOROUS 2.8 mg/dL (2.5-4.9); POTASSIUM 3.9 mmol/L (3.5-5.1); TOT PROT 5.7 g/dl (6.4-8.2)
[2020-05-17] MEDS ORDERED: METOPROLOL TARTRATE 50 MG TABLET (FP) PO SCH (10:00)
[2020-05-17] MEDS ORDERED: LOSARTAN POTASSIUM 50 MG TABLET (FP) PO SCH (10:00)
--- NOTE | 2020-05-17 11:45 | PN ---
Progress Note, Physician History of Present Illness: 85-year-old female, with a history of hypertension, dementia, hyperlipidemia, now presenting with confusion. Found to have an intracranial bleed. Recent admission on 05/12 for emesis/UTI. Patient speaks Ukranian. mild dementia at baseline. CT head- large acute/subacute hemorrhage in the right frontal lobe, anteriorly measuring 4.4 x 3.1 cm with moderate surrounding edema and mild mass effect on the right frontal horn. Suggestion of minimial adjacent subarachnoid hemorrhage. ? faint/minimal subarachnoid hemorrhage at the right parieto-occipital junction NAD awake and alert, smiling, pointing at TV- aphasia? Passed bedside swallow MRI brain w/wo Contrast:Acute approximately 4 x 3 cm right frontal intraparenchymal hemorrhage with mild to moderate perihemorrhagic edema. There is resultant minimal contralateral midline displacement. Trace amount of acute right frontal subdural blood ventrally. Small amount of acute blood within the occipital horns of the lateral ventricles. Trace amounts of acute subarachnoid blood along the occipital and temporal lobes bilaterally Multiple small bilateral cerebral and cerebellar chronic microbleeds are seen which could be on the basis of amyloid angiopathy. No obvious underlying neoplastic lesion is identified within the limitations of the exam. Correlation with 4 week follow-up contrast enhanced MRI or CT is suggested to document lack of an underlying lesion following resolution of the previously described acute right frontal in trapa renchymal hemorrhage. Seen by NS, no surgical intervention recommended at this time - Current Medication List Current Medications: Active Medications Atorvastatin Calcium (Lipitor -) 20 mg PO HS [facility] Potassium Chloride/Sodium Chloride (1/2ns+20meq Kcl) 20 meq in 1,000 mls @ 83 mls/hr IV ASDIR [facility] Last Admin: 05/17/20 10:13 Dose: 83 mls/hr Documented by: Metoprolol Succinate (Toprol Xl -) 50 mg PO DAILY [facility] Last Admin: 05/17/20 10:13 Dose: 50 mg Documented by: Montelukast Sodium (Singulair -) 10 mg PO [facility] - Objective Vital Signs: Vital Signs Temperature 99.5 F 05/17/20 06:43 Pulse Rate 76 05/17/20 06:43 Respiratory Rate 18 05/17/20 06:43 Blood Pressure 131/66 05/17/20 06:43 O2 Sat by Pulse Oximetry (%) 94 L 05/17/20 06:43 Cardiovascular: Yes: S1, S2 Respiratory: Yes: Regular, CTA Bilaterally Gastrointestinal: Yes: Normal Bowel Sounds, Soft Neurological: Yes: Alert, Aphasia Labs: CBC, BMP 05/17/20 08:15 05/17/20 08:15 INR, PTT INR 1.30 (0.83-1.09) H 05/17/20 08:15 Assessment/Plan - Problems (1) AMS (altered mental status) Assessment/Plan: -CT head C-:Large acute/subacute hemorrhage in the right frontal lobe, anteriorly measuring 4.4 x 3.1 cm with moderate surrounding edema and mild mass effect on the right frontal horn. Close follow-up is needed to rule out any underlying mass lesion There is suggestion of minimal adjacent subarachnoid hemorrhage. There is also questionable faint/minimal subarachnoid hemorrhage at the right parieto- occipital junction. Small amount of intraventricular hemorrhage is layering in the occipital horns. -MRI brain w/wo Contrast:Acute approximately 4 x 3 cm right frontal intraparenchymal hemorrhage with mild to moderate perihemorrhagic edema. There is resultant minimal contralateral midline displacement. Trace amount of acute right frontal subdural blood ventrally. Small amount of acute blood within the occipital horns of the lateral ventricles. Trace amounts of acute subarachnoid blood along the occipital and temporal lobes bilaterally Multiple small bilateral cerebral and cerebellar chronic microbleeds are seen which could be on the basis of amyloid angiopathy. No obvious underlying neoplastic lesion is identified within the limitations of the exam. Correlation with 4 week follow-up contrast enhanced MRI or CT is suggested to document lack of an underlying lesion following resolution of the previously described acute right frontal intrapa renchymal hemorrhage. -Neurosurgery consult -UA/UC negative Problems reviewed: Yes Code(s): R41.82 - ALTERED MENTAL STATUS, UNSPECIFIED Qualifiers: Altered mental status type: unspecified Qualified Code(s): R41.82 - Altered mental status, unspecified (2) Acute metabolic encephalopathy Problems reviewed: Yes Code(s): G93.41 - METABOLIC ENCEPHALOPATHY (3) Intracranial hemorrhage Assessment/Plan: as above -Speech pathology consult -Repeat MRI in 4 weeks Problems reviewed: Yes Code(s): I62.9 - NONTRAUMATIC INTRACRANIAL HEMORRHAGE, UNSPECIFIED (4) KIET (acute kidney injury) Assessment/Plan: -Cr with sudden elevation to 3.1 -IVF -Monitor trend Problems reviewed: Yes Code(s): N17.9 - ACUTE KIDNEY FAILURE, UNSPECIFIED (5) HTN (hypertension) Assessment/Plan: -BP goal<160/90 -Start Toprol 50 mg po daily, first dose now Problems reviewed: Yes Code(s): I10 - ESSENTIAL (PRIMARY) HYPERTENSION (6) Leukocytosis Assessment/Plan: -Hematology consult -Afebrile now -Seen by ID Problems reviewed: Yes Code(s): D72.829 - ELEVATED WHITE BLOOD CELL COUNT, UNSPECIFIED
--- NOTE | 2020-05-17 15:02 | PN ---
Progress Note, Physician History of Present Illness: Seen and examined at the bedside awake but not talking making urine via mccoy no overnight events - Current Medication List Current Medications: Active Medications Atorvastatin Calcium (Lipitor -) 20 mg PO [facility] Potassium Chloride/Sodium Chloride (1/2ns+20meq Kcl) 20 meq in 1,000 mls @ 83 mls/hr IV ASDIR [facility] Last Admin: 05/17/20 10:13 Dose: 83 mls/hr Documented by: Metoprolol Succinate (Toprol Xl -) 50 mg PO DAILY [facility] Last Admin: 05/17/20 10:13 Dose: 50 mg Documented by: Montelukast Sodium (Singulair -) 10 mg PO [facility] - Objective Vital Signs: Vital Signs Temperature 98.8 F 05/17/20 14:27 Pulse Rate 84 05/17/20 14:27 Respiratory Rate 18 05/17/20 14:27 Blood Pressure 150/79 05/17/20 14:27 O2 Sat by Pulse Oximetry (%) 95 05/17/20 10:00 Constitutional: Yes: No Distress HENT: Yes: Atraumatic Neck: Yes: Supple Cardiovascular: Yes: Regular Rate and Rhythm Respiratory: Yes: Regular Gastrointestinal: Yes: Soft Genitourinary: Yes: Mccoy Present Edema: No Labs: CBC, BMP 05/17/20 08:15 05/17/20 08:15 INR, PTT INR 1.30 (0.83-1.09) H 05/17/20 08:15 Assessment/Plan 84 year old woman with history of hypertension and hyperlipidemia with recently treated UTI who presented with altered mental status and found to have ICH/SAH and developed acute kidney injury with serum Cr of 3.1. 1. Acute kidney injury due to bladder outlet obstruction in setting of ICH 2. ICH/SAH 3. Hypertension 4. Hyperlipdiemia Renal function improved with mccoy and IVF Can discontinue IVF Consider urologic evaluation for urinary retention Continue to hold ARB for now. Trend renal function daily Neurology and neurosurgery follow up Thank you Shayne Bacon DO
--- NOTE | 2020-05-17 20:08 | CON.HO ---
Consult Consult Specialty:: Heme/onc Referred by:: Dr. Wiley Reason for Consultation:: Leukocytosis - History of Present Illness Chief Complaint: AMS History of Present Illness: 84F with HTN, HLD, memory loss admitted on 05/[address] and MRI suggest a 3x4 cm ICH in the right frontal lobe with possible underlying lesion. Planned for repeat MRI in 4 weeks. Now also with KIET. Found to have urinary retention. Hematology consulted for leukocytosis. Has had mild neutrophilic leukocytosis since 05/12 when she was admitted for UTI. WBC coming down from 15.1 to 10.7 today. 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) Cardio/Vascular: Yes: HTN, Hyperlipdemia ...: No - Past Surgical History Past Surgical History: Yes: None - Alcohol/Substance Use Hx Alcohol Use: No History of Substance Use: reports: None - Smoking History Smoking history: Never smoked Have you smoked in the past 12 months: No Aproximately how many cigarettes per day: 0 If you are a former smoker, when did you quit?: 20y - Social History ADL: Family Assistance History of Recent Travel: No Home Medications - Allergies Allergies/Adverse Reactions: Allergies Allergy/AdvReac Type Severity Reaction Status Date / Time No Known Drug Allergies Allergy Verified 01/07/15 16:46 - Home Medications Home Medications: Ambulatory Orders Cephalexin [Keflex] 500 mg PO BID 10 Days #20 capsule 05/12/20 Losartan Potassium 50 mg PO DAILY 05/14/20 Atorvastatin Ca [Lipitor] 20 mg PO HS 05/16/20 Metoprolol Tartrate [Lopressor -] 50 mg PO DAILY 05/16/20 Montelukast Sodium [Singulair] 10 mg PO DAILY 05/16/20 Family Medical History Family History: Unable to Obtain Physical Exam Vital Signs: Vital Signs Temperature 97.3 F L 05/17/20 18:00 Pulse Rate 87 05/17/20 18:00 Respiratory Rate 18 05/17/20 18:00 Blood Pressure 158/72 05/17/20 18:00 O2 Sat by Pulse Oximetry (%) 95 05/17/20 18:00 Constitutional: Yes: No Distress, Calm Eyes: Yes: Conjunctiva Clear Neck: No: Lymphadenopathy Respiratory: Yes: Regular Gastrointestinal: Yes: Soft. No: Distention, Splenomegaly, Tenderness Edema: No Labs: CBC, BMP 05/17/20 08:15 05/17/20 08:15 Assessment/Plan 84F with HTN, HLD, memory loss admitted on 05/14 with ICH in the right frontal lobe with possible underlying lesion. Planned for repeat MRI in 4 weeks. Hematology consulted for leukocytosis. Has had mild neutrophilic leukocytosis since 05/12 when she was admitted for UTI. WBC coming down from 15.1 to 10.7 today. Peripheral smear with slightly increased mature PMNs. Likely reactive neutrophilia.Wound continue to monitor CBC.
[2020-05-17] MEDS ORDERED: MONTELUKAST NA 10 MG TABLET PO SCH (22:00)
[2020-05-17] MEDS: MONTELUKAST NA 10 MG TABLET PO SCH (22:18)
[2020-05-17] MEDS: ATORVASTATIN CA 20 MG TABLET (FP) PO SCH (22:18)
[2020-05-18 08:20] LABS: BLOOD UREA NITROGEN 10.9 mg/dL (7-18); CALCIUM 8.7 mg/dL (8.5-10.1); CREATININE 0.4 mg/dL (0.55-1.3); POTASSIUM 3.9 mmol/L (3.5-5.1)
--- NOTE | 2020-05-18 11:11 | PN ---
Progress Note, Physician - Current Medication List Current Medications: Active Medications Atorvastatin Calcium (Lipitor -) 20 mg PO [facility] Last Admin: 05/17/20 22:18 Dose: 20 mg Documented by: Metoprolol Succinate (Toprol Xl -) 50 mg PO [facility]ILY [facility] Last Admin: 05/18/20 09:44 Dose: 50 mg Documented by: Montelukast Sodium (Singulair -) 10 mg PO [facility] Last Admin: 05/17/20 22:18 Dose: 10 mg Documented by: - Objective Vital Signs: Vital Signs Temperature 98 F 05/18/20 09:53 Pulse Rate 79 05/18/20 09:53 Respiratory Rate 18 05/18/20 09:53 Blood Pressure 143/77 05/18/20 09:53 O2 Sat by Pulse Oximetry (%) 94 L 05/18/20 09:53 Cardiovascular: Yes: Regular Rate and Rhythm Respiratory: Yes: Regular, CTA Bilaterally Gastrointestinal: Yes: Normal Bowel Sounds, Soft Labs: CBC, BMP 05/17/20 08:15 05/18/20 07:12 INR, PTT INR 1.30 (0.83-1.09) H 05/17/20 08:15 Assessment/Plan - Problems (1) AMS (altered mental status) Assessment/Plan: -CT head C-:Large acute/subacute hemorrhage in the right frontal lobe, anteriorly measuring 4.4 x 3.1 cm with moderate surrounding edema and mild mass effect on the right frontal horn. Close follow-up is needed to rule out any un derlying mass lesion There is suggestion of minimal adjacent subarachnoid hemorrhage. There is also questionable faint/minimal subarachnoid hemorrhage at the right parieto- occipital junction. Small amount of intraventricular hemorrhage is layering in the occipital horns. -MRI brain w/wo Contrast:Acute approximately 4 x 3 cm right frontal intraparenchymal hemorrhage with mild to moderate perihemorrhagic edema. There is resultant minimal contralateral midline displacement. Trace amount of acute right frontal subdural blood ventrally. Small amount of acute blood within the occipital horns of the lateral ventricles. Trace amounts of acute subarachnoid blood along the occipital and temporal lobes bilaterally Multiple small bilateral cerebral and cerebellar chronic microbleeds are seen which could be on the basis of amyloid angiopathy. No obvious underlying neoplastic lesion is identified within the limitations of the exam. Correlation with 4 week follow-up contrast enhanced MRI or CT is suggested to document lack of an underlying lesion following resolution of the previously described acute right frontal intrapa renchymal hemorrhage. -Neurosurgery consult -UA/UC negative Problems reviewed: Yes Code(s): R41.82 - ALTERED MENTAL STATUS, UNSPECIFIED Qualifiers: Altered mental status type: unspecified Qualified Code(s): R41.82 - Altered mental status, unspecified (2) Acute metabolic encephalopathy Problems reviewed: Yes Code(s): G93.41 - METABOLIC ENCEPHALOPATHY (3) Intracranial hemorrhage Assessment/Plan: as above -Speech pathology consult -Repeat MRI in 4 weeks Problems reviewed: Yes Code(s): I62.9 - NONTRAUMATIC INTRACRANIAL HEMORRHAGE, UNSPECIFIED (4) KIET (acute kidney injury) Assessment/Plan: -Cr with sudden elevation to 3.1 -IVF -Monitor trend Problems reviewed: Yes Code(s): N17.9 - ACUTE KIDNEY FAILURE, UNSPECIFIED (5) HTN (hypertension) Assessment/Plan: -BP goal<160/90 -Start Toprol 50 mg po daily, first dose now Problems reviewed: Yes Code(s): I10 - ESSENTIAL (PRIMARY) HYPERTENSION (6) Leukocytosis Assessment/Plan: -Hematology consult -Afebrile now -Seen by ID Problems reviewed: Yes Code(s): D72.829 - ELEVATED WHITE BLOOD CELL COUNT, UNSPECIFIED
[2020-05-18] MEDS: ATORVASTATIN CA 20 MG TABLET (FP) PO SCH (21:35)
[2020-05-18] MEDS: MONTELUKAST NA 10 MG TABLET PO SCH (21:36)
[2020-05-19 08:53] LABS: BLOOD UREA NITROGEN 13.7 mg/dL (7-18); CALCIUM 8.6 mg/dL (8.5-10.1); CREATININE 0.5 mg/dL (0.55-1.3)
--- NOTE | 2020-05-19 11:04 | PN ---
Progress Note, Physician History of Present Illness: Seen and examined at the bedside awake and alert talking today making urine via mccoy no overnight events - Current Medication List Current Medications: Active Medications Atorvastatin Calcium (Lipitor -) 20 mg PO [facility] Last Admin: 05/18/20 21:35 Dose: 20 mg Documented by: Metoprolol Succinate (Toprol Xl -) 50 mg PO [facility]ILY [facility] Last Admin: 05/19/20 09:58 Dose: 50 mg Documented by: Montelukast Sodium (Singulair -) 10 mg PO [facility] Last Admin: 05/18/20 21:36 Dose: 10 mg Documented by: - Objective Vital Signs: Vital Signs Temperature 98.3 F 05/19/20 06:00 Pulse Rate 75 05/19/20 06:00 Respiratory Rate 17 05/19/20 06:00 Blood Pressure 143/53 L 05/19/20 06:00 O2 Sat by Pulse Oximetry (%) 95 05/19/20 06:00 Constitutional: Yes: No Distress HENT: Yes: Atraumatic Neck: Yes: Supple Cardiovascular: Yes: Regular Rate and Rhythm Respiratory: Yes: Regular, CTA Bilaterally Extremities: No: Cyanosis Edema: No Labs: CBC, BMP 05/17/20 08:15 05/19/20 08:03 INR, PTT INR 1.30 (0.83-1.09) H 05/17/20 08:15 Assessment/Plan 84 year old woman with history of hypertension and hyperlipidemia with recently treated UTI who presented with altered mental status and found to have ICH/SAH and developed acute kidney injury with serum Cr of 3.1. 1. Acute kidney injury due to bladder outlet obstruction in setting of ICH 2. ICH/SAH 3. Hypertension 4. Hyperlipdiemia Renal function stable Mccoy in place with good urine output Give trial of void today, will check bladder scan post mccoy removal Off IV fluids Continue to hold ARB for now. Trend renal function daily Neurology and neurosurgery follow up Thank you Shayne Bacon DO
--- NOTE | 2020-05-19 13:17 | PN ---
Progress Note, Physician - Current Medication List Current Medications: Active Medications Atorvastatin Calcium (Lipitor -) 20 mg PO [facility] Last Admin: 05/18/20 21:35 Dose: 20 mg Documented by: Metoprolol Succinate (Toprol Xl -) 50 mg PO DAILY [facility] Last Admin: 05/19/20 09:58 Dose: 50 mg Documented by: Montelukast Sodium (Singulair -) 10 mg PO [facility] Last Admin: 05/18/20 21:36 Dose: 10 mg Documented by: - Objective Vital Signs: Vital Signs Temperature 98.3 F 05/19/20 06:00 Pulse Rate 86 05/19/20 10:00 Respiratory Rate 18 05/19/20 10:00 Blood Pressure 149/65 05/19/20 10:00 O2 Sat by Pulse Oximetry (%) 95 05/19/20 10:00 Cardiovascular: Yes: Regular Rate and Rhythm Respiratory: Yes: Regular, CTA Bilaterally Gastrointestinal: Yes: Normal Bowel Sounds, Soft Labs: CBC, BMP 05/17/20 08:15 05/19/20 08:03 INR, PTT INR 1.30 (0.83-1.09) H 05/17/20 08:15 Assessment/Plan - Problems (1) AMS (altered mental status) Assessment/Plan: -CT head C-:Large acute/subacute hemorrhage in the right frontal lobe, anteriorly measuring 4.4 x 3.1 cm with moderate surrounding edema and mild mass effect on the right frontal horn. Close follow-up is needed to rule out any u nderlying mass lesion There is suggestion of minimal adjacent subarachnoid hemorrhage. There is also questionable faint/minimal subarachnoid hemorrhage at the right parieto- occipital junction. Small amount of intraventricular hemorrhage is layering in the occipital horns. -MRI brain w/wo Contrast:Acute approximately 4 x 3 cm right frontal intraparenchymal hemorrhage with mild to moderate perihemorrhagic edema. There is resultant minimal contralateral midline displacement. Trace amount of acute right frontal subdural blood ventrally. Small amount of acute blood within the occipital horns of the lateral ventricles. Trace amounts of acute subarachnoid blood along the occipital and temporal lobes bilaterally Multiple small bilateral cerebral and cerebellar chronic microbleeds are seen which could be on the basis of amyloid angiopathy. No obvious underlying neoplastic lesion is identified within the limitations of the exam. Correlation with 4 week follow-up contrast enhanced MRI or CT is suggested to document lack of an underlying lesion following resolution of the previously described acute right frontal intrapa renchymal hemorrhage. -Neurosurgery consult -UA/UC negative Problems reviewed: Yes Code(s): R41.82 - ALTERED MENTAL STATUS, UNSPECIFIED Qualifiers: Altered mental status type: unspecified Qualified Code(s): R41.82 - Altered mental status, unspecified (2) Acute metabolic encephalopathy Problems reviewed: Yes Code(s): G93.41 - METABOLIC ENCEPHALOPATHY (3) Intracranial hemorrhage Assessment/Plan: as above -Speech pathology consult -Repeat MRI in 4 weeks Problems reviewed: Yes Code(s): I62.9 - NONTRAUMATIC INTRACRANIAL HEMORRHAGE, UNSPECIFIED (4) KIET (acute kidney injury) Assessment/Plan: -Cr with sudden elevation to 3.1 -IVF -Monitor trend Problems reviewed: Yes Code(s): N17.9 - ACUTE KIDNEY FAILURE, UNSPECIFIED (5) HTN (hypertension) Assessment/Plan: -BP goal<160/90 -Start Toprol 50 mg po daily, first dose now Problems reviewed: Yes Code(s): I10 - ESSENTIAL (PRIMARY) HYPERTENSION (6) Leukocytosis Assessment/Plan: -Hematology consult -Afebrile now -Seen by ID Problems reviewed: Yes Code(s): D72.829 - ELEVATED WHITE BLOOD CELL COUNT, UNSPECIFIED
[2020-05-19] MEDS ORDERED: amLODIPine BESYLATE 5 MG TABLET (FP) PO ONE (21:30)
[2020-05-19] MEDS: MONTELUKAST NA 10 MG TABLET PO SCH (22:20)
[2020-05-19] MEDS: ATORVASTATIN CA 20 MG TABLET (FP) PO SCH (22:20)
[2020-05-20 08:31] LABS: BLOOD UREA NITROGEN 11.7 mg/dL (7-18); CALCIUM 8.9 mg/dL (8.5-10.1); CREATININE 0.5 mg/dL (0.55-1.3)
--- NOTE | 2020-05-20 09:19 | DS ---
Physical Examination Vital Signs: Vital Signs Temperature 98.7 F 05/20/20 06:00 Pulse Rate 90 05/20/20 06:00 Respiratory Rate 20 05/20/20 06:00 Blood Pressure 129/64 05/20/20 06:00 O2 Sat by Pulse Oximetry (%) 96 05/20/20 06:00 Cardiovascular: Yes: Regular Rate and Rhythm Respiratory: Yes: Regular, CTA Bilaterally Gastrointestinal: Yes: Normal Bowel Sounds, Soft Neurological: Yes: Alert, Oriented Labs: CBC, BMP 05/17/20 08:15 05/20/20 07:22 Discharge Summary Problems reviewed: Yes Reason For Visit: ALT MENTAL STATUS,INTRACRANIAL HEMORRHAGE Current Active Problems KIET (acute kidney injury) (Acute) AMS (altered mental status) (Acute) Acute metabolic encephalopathy (Acute) Encounter for screening laboratory testing for COVID-19 virus (Acute) HLD (hyperlipidemia) (Acute) HTN (hypertension) (Acute) Intracranial hemorrhage (Acute) Leukocytosis (Acute) SIRS (systemic inflammatory response syndrome) (Acute) Sepsis (Acute) Hospital Course: - Problems (1) AMS (altered mental status) Assessment/Plan: -CT head C-:Large acute/subacute hemorrhage in the right frontal lobe, anteriorly measuring 4.4 x 3.1 cm with moderate surrounding edema and mild mass effect on the right frontal horn. Close follow-up is needed to rule out any underlying mass lesion There is suggestion of minimal adjacent subarachnoid hemorrhage. There is also questionable faint/minimal subarachnoid hemorrhage at the right parieto- occipital junction. Small amount of intraventricular hemor rhage is layering in the occipital horns. -MRI brain w/wo Contrast:Acute approximately 4 x 3 cm right frontal intraparenchymal hemorrhage with mild to moderate perihemorrhagic edema. There is resultant minimal contralateral midline displacement. Trace amount of acute right frontal subdural blood ventrally. Small amount of acute blood within the occipital horns of the lateral ventricles. Trace amounts of acute subarachnoid blood along the occipital and temporal lobes bilaterally Multiple small b ilateral cerebral and cerebellar chronic microbleeds are seen which could be on the basis of amyloid angiopathy. No obvious underlying neoplastic lesion is identified within the limitations of the exam. Correlation with 4 week follow-up contrast enhanced MRI or CT is suggested to document lack of an underlying lesion following resolution of the previously described acute right frontal intrapa renchymal hemorrhage. -Neurosurgery consult appreciated -UA/UC negative Problems reviewed: Yes Code(s): R41.82 - ALTERED MENTAL STATUS, UNSPECIFIED Qualifiers: Altered mental status type: unspecified Qualified Code(s): R41.82 - Altered mental status, unspecified (2) Acute metabolic encephalopathy Problems reviewed: Yes Code(s): G93.41 - METABOLIC ENCEPHALOPATHY (3) Intracranial hemorrhage Assessment/Plan: as above -Speech pathology consult -Repeat MRI in 4 weeks Problems reviewed: Yes Code(s): I62.9 - NONTRAUMATIC INTRACRANIAL HEMORRHAGE, UNSPECIFIED (4) KIET (acute kidney injury) Assessment/Plan: -Improved -OFF IVF -Monitor trend Problems reviewed: Yes Code(s): N17.9 - ACUTE KIDNEY FAILURE, UNSPECIFIED (5) HTN (hypertension) Assessment/Plan: -BP goal<160/90 -Start Toprol 50 mg po daily, first dose now Problems reviewed: Yes Code(s): I10 - ESSENTIAL (PRIMARY) HYPERTENSION (6) Leukocytosis Assessment/Plan: -Hematology consult -Afebrile now -Seen by ID Problems reviewed: Yes Code(s): D72.829 - ELEVATED WHITE BLOOD CELL COUNT, UNSPECIFIED dc planning pt Condition: Improved - Instructions Referrals: Karel Avila MD [Primary Care Provider] - [facility]position: [facility] - Home Medications Comprehensive Discharge Medication List: Ambulatory Orders Atorvastatin Ca [Lipitor] 20 mg PO HS 05/16/20 Metoprolol Tartrate [Lopressor -] 50 mg PO DAILY 05/16/20 Montelukast Sodium [Singulair] 10 mg PO DAILY 05/16/20
--- NOTE | 2020-05-20 11:26 | PN ---
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 - Note Progress Note: Selected Entries 05/19/20 05/19/20 05/19/20 06:00 10:00 12:21 Breakfast 50% Diet Tolerated Fair Lunch 50% Supper 50% Blood Pressure 143/53 L 149/65 O2 Sat by Pulse Oximetry (%) Oxygen Delivery Method 05/19/20 05/19/20 05/19/20 14:35 21:11 22:00 Breakfast Diet Tolerated Well Lunch Supper 50% Blood Pressure 140/74 177/85 H O2 Sat by Pulse Oximetry (%) Oxygen Delivery Method 05/19/20 05/20/20 05/20/20 23:00 01:59 06:00 Breakfast Diet Tolerated Well Lunch Supper 50% Blood Pressure O2 Sat by Pulse 95 96 Oximetry (%) Oxygen Delivery Method 05/20/20 11:00 Breakfast Diet Tolerated Lunch Supper Blood Pressure O2 Sat by Pulse 95 Oximetry (%) Oxygen Delivery Room Air Method Speaking more.fluent, precise. Language barrier. Tolerating reg diet/thin liquids Pending d/c- Possibly Isaiah
--- NOTE | 2020-05-20 13:16 | CONSULT ---
Consult Consult Specialty:: Physiatry consult Dr Yu for Dr Rodriguez - History of Present Illness History of Present Illness: This is an 84 year old woman with a medical history of memory loss, HTN, HLD, who presented to the ED 05/14/2020 with AMS since 05/12/2020 discharge from ED with UTI. MRI brain showed large subacute/ acute R frontal lobe ICH with minimal SAH, for which Neurosurg was consulted who recommended repeat MRI in 4 weeks. IV fluids were given for KIET. Heme- Onc and ID were consulted for leukocytosis which improved without interventions. She was seen by PT, and on 05/20/2020 she was Minimum Assist in transfers, and ambulated 20 feet Minimum Assist x2 people with Rolling Walker. Physiatry was consulted for further recommendations. - Past Medical History COGNOS: Yes: Other (memory loss) Cardio/Vascular: Yes: HTN, Hyperlipdemia ...: No - Past Surgical History Past Surgical History: Yes: None - Alcohol/Substance Use Hx Alcohol Use: No History of Substance Use: reports: None - Smoking History Smoking history: Never smoked Have you smoked in the past 12 months: No Aproximately how many cigarettes per day: 0 If you are a former smoker, when did you quit?: 20y - Social History Usual Living Arrangement: Alone (lives alone in house with stairs, was previously Independent with SC) ADL: Family Assistance History of Recent Travel: No Home Medications - Allergies Allergies/Adverse Reactions: Allergies Allergy/AdvReac Type Severity Reaction Status Date / Time No Known Drug Allergies Allergy Verified 01/07/15 16:46 - Home Medications Home Medications: Ambulatory Orders Atorvastatin Ca [Lipitor] 20 mg PO HS 05/16/20 Metoprolol Tartrate [Lopressor -] 50 mg PO DAILY 05/16/20 Montelukast Sodium [Singulair] 10 mg PO DAILY 05/16/20 Family Medical History Family History: Unable to Obtain Review of Systems Findings/Remarks: Unable to obtain ROS 2/2 mental status despite Ukranian asl interpreter #[id number] Physical Exam Vital Signs: Vital Signs Temperature 98.2 F 05/20/20 11:00 Pulse Rate 84 05/20/20 11:00 Respiratory Rate 18 05/20/20 11:00 Blood Pressure 150/75 05/20/20 11:00 O2 Sat by Pulse Oximetry (%) 95 05/20/20 11:00 Musculoskeletal: Yes: Other (calm elderly Caucaisan F sitting in bed NAD; B shoulder flexion to 100 degrees, at least 4+/5 BUE/ BLE except for 4/5 R HF, with B HF/ KF to 90 degrees; no BLE pitting edema, no B calf tenderness) Labs: CBC, BMP 05/17/20 08:15 05/20/20 07:22 Imaging - Results MRI: Report Reviewed (as per HPI) Assessment/Plan Impression: 1) Deficits mobility/ ADLs 2) Deconditioning 3) Gait abnormality 4) ICH/ ROXANNE 5) Metabolic encephalopathy 6) Leukocystosis 7) KIET 8) hx memory loss 9) HTN, HLD 10) Overweight 11) No documented flu shot/ pneumovax Recommendations: 1) PT for stretching strengthening ROM and functional mobility 2) Falls, safety precautions 3) Cardiac precautions 4) DVT ppx: off AC 2/2 ICH, +SCDs in place 5) Bowel regimen prn 6) Skin protection: float heels, frequent turning 7) Nutrition consult for overweight 8) Continue plan per primary team 9) Discharge planning: she is currently not able to return home safely independently, recommend inpatient rehabilitation once medically stable Thank you for this referral.
[2020-05-20] MEDS: MONTELUKAST NA 10 MG TABLET PO SCH (22:20)
[2020-05-20] MEDS: ATORVASTATIN CA 20 MG TABLET (FP) PO SCH (22:20)
--- NOTE | 2020-05-20 22:38 | PN ---
Progress Note (short form) - Note Progress Note: Episodic Note 11pm Called by nurse patient has not voided since morning. Bladder scan showed >546cc. Patient was straight catherized. She had similar episode of urinary retention last night. Creatinine 0.5 today. Will add gentle hydration. Continue to monitor urine output closely. Consider Urology consult in am. Visit type - Emergency Visit Emergency Visit: Yes ED Registration Date: 05/14/20 Care time: The patient presented to the Emergency Department on the above date and was hospitalized for further evaluation of their emergent condition. - New Patient This patient is new to me today: Yes Date on this admission: 05/20/20 - Critical Care Critical Care patient: No - Medication Review Med list reviewed for High Risk Meds patients 65 and older: No
[2020-05-20] MEDS ORDERED: SODIUM CHLORIDE 1,000 ML IV SCH (22:45)
--- NOTE | 2020-05-21 08:10 | PN ---
Progress Note, Physician - Current Medication List Current Medications: Active Medications Atorvastatin Calcium (Lipitor -) 20 mg PO [facility] Last Admin: 05/20/20 22:20 Dose: 20 mg Documented by: Sodium Chloride (Normal Saline -) 1,000 mls @ 42 mls/hr IV ASDIR [facility] Last Admin: 05/21/20 00:30 Dose: 42 mls/hr Documented by: Metoprolol Succinate (Toprol Xl -) 50 mg PO DAILY [facility] Last Admin: 05/20/20 09:49 Dose: 50 mg Documented by: Montelukast Sodium (Singulair -) 10 mg PO HS [facility] Last Admin: 05/20/20 22:20 Dose: 10 mg Documented by: - Objective Vital Signs: Vital Signs Temperature 98.7 F 05/21/20 05:48 Pulse Rate 81 05/21/20 05:48 Respiratory Rate 20 05/21/20 05:48 Blood Pressure 148/76 05/21/20 05:48 O2 Sat by Pulse Oximetry (%) 95 05/21/20 05:48 Cardiovascular: Yes: Regular Rate and Rhythm Respiratory: Yes: Regular, CTA Bilaterally Gastrointestinal: Yes: Normal Bowel Sounds, Soft. No: Tenderness Genitourinary: Yes: Bladder Distention Labs: CBC, BMP 05/17/20 08:15 05/20/20 07:22 INR, PTT INR 1.30 (0.83-1.09) H 05/17/20 08:15 Assessment/Plan - Problems (1) AMS (altered mental status) Assessment/Plan: -CT head C-:Large acute/subacute hemorrhage in the right frontal lobe, anteriorly measuring 4.4 x 3.1 cm with moderate surrounding edema and mild mass effect on the right frontal horn. Close follow-up is needed to rule out any underlying mass lesion There is suggestion of minimal adjacent subarachnoid hemorrhage. There is also questionable faint/minimal subarachnoid hemorrhage at the right parieto- occipital junction. Small amount of intraventricular hemorrhage is layering in the occipital horns. -MRI brain w/wo Contrast:Acute approximately 4 x 3 cm right frontal intraparenchymal hemorrhage with mild to moderate perihemorrhagic edema. There is resultant minimal contralateral midline displacement. Trace amount of acute right frontal subdural blood ventrally. Small amount of acute blood within the occipital horns of the lateral ventricles. Trace amounts of acute subarachnoid blood along the occipital and temporal lobes bilaterally Multiple small bilateral cerebral and cerebellar chronic microbleeds are seen which could be on the basis of amyloid angiopathy. No obvious underlying neoplastic lesion is identified within the limitations of the exam. Correlation with 4 week follow-up contrast enhanced MRI or CT is suggested to document lack of an underlying lesion following resolution of the previously described acute right frontal intrapa renchymal hemorrhage. -Neurosurgery consult -UA/UC negative Problems reviewed: Yes Code(s): R41.82 - ALTERED MENTAL STATUS, UNSPECIFIED Qualifiers: Altered mental status type: unspecified Qualified Code(s): R41.82 - Altered mental status, unspecified (2) Acute metabolic encephalopathy Problems reviewed: Yes Code(s): G93.41 - METABOLIC ENCEPHALOPATHY (3) Intracranial hemorrhage Assessment/Plan: as above -Speech pathology consult -Repeat MRI in 4 weeks Problems reviewed: Yes Code(s): I62.9 - NONTRAUMATIC INTRACRANIAL HEMORRHAGE, UNSPECIFIED (4) KIET (acute kidney injury) Assessment/Plan: -Cr with sudden elevation to 3.1 -now stable -Monitor trend Problems reviewed: Yes Code(s): N17.9 - ACUTE KIDNEY FAILURE, UNSPECIFIED (5) HTN (hypertension) Assessment/Plan: -BP goal<160/90 -Start Toprol 50 mg po daily, first dose now Problems reviewed: Yes Code(s): I10 - ESSENTIAL (PRIMARY) HYPERTENSION (6) Urinary retention Assessment/Plan: -Urology consult -Karimi
--- NOTE | 2020-05-21 09:19 | CON.GU ---
Consult Consult Specialty:: urinary retention Referred by:: Austin Reason for Consultation:: urinary retention - History of Present Illness Chief Complaint: urinary retention History of Present Illness: Patient with AMS (altered mental status, Acute metabolic encephalopathy, s/p intracranial hemorrhage who is found to be in mild urinary retention with post void volume of 220 cc. Patient is usually incontinent of urine. Patient has a WBC of 10.7 and a creatinine of 0.5. 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) Cardio/Vascular: Yes: HTN, Hyperlipdemia ...: No - Past Surgical History Past Surgical History: Yes: None - Alcohol/Substance Use Hx Alcohol Use: No History of Substance Use: reports: None - Smoking History Smoking history: Never smoked Have you smoked in the past 12 months: No Aproximately how many cigarettes per day: 0 If you are a former smoker, when did you quit?: 20y - Social History Usual Living Arrangement: Alone (lives alone in house with stairs, was previous ly Independent with [place]) ADL: Family Assistance History of Recent Travel: No Home Medications - Allergies Allergies/Adverse Reactions: Allergies Allergy/AdvReac Type Severity Reaction Status Date / Time No Known Drug Allergies Allergy Verified 01/07/15 16:46 - Home Medications Home Medications: Ambulatory Orders Atorvastatin Ca [Lipitor] 20 mg PO HS 05/16/20 Metoprolol Tartrate [Lopressor -] 50 mg PO DAILY 05/16/20 Montelukast Sodium [Singulair] 10 mg PO DAILY 05/16/20 Family Medical History Family History: Unable to Obtain Physical Exam- Vital Signs: Vital Signs Temperature 98.7 F 05/21/20 05:48 Pulse Rate 81 05/21/20 05:48 Respiratory Rate 20 05/21/20 05:48 Blood Pressure 148/76 05/21/20 05:48 O2 Sat by Pulse Oximetry (%) 95 05/21/20 05:48 Constitutional: Yes: No Distress, Calm Eyes: Yes: WNL, Conjunctiva Clear, EOM Intact Neck: Yes: Supple, Trachea Midline Cardiovascular: Yes: Regular Rate and Rhythm Respiratory: Yes: Regular Gastrointestinal: Yes: WNL, Normal Bowel Sounds, Soft Renal/: Yes: WNL (bladder not palpable) Kidneys: Yes: WNL External Genitalia: Yes: WNL Labs: CBC, BMP 05/17/20 08:15 05/20/20 07:22 Assessment/Plan imp neurogenic bladder incontinence plan give patient a prolonged trial of voiding and straight catheterize her PRN
[2020-05-21 09:42] VITALS: PULSE 76
--- NOTE | 2020-05-21 12:48 | DS ---
Physical Examination Vital Signs: Vital Signs Temperature 98.8 F 05/21/20 09:00 Pulse Rate 76 05/21/20 09:00 Respiratory Rate 18 05/21/20 09:00 Blood Pressure 132/78 05/21/20 09:00 O2 Sat by Pulse Oximetry (%) 95 05/21/20 09:00 Labs: CBC, BMP 05/17/20 08:15 05/20/20 07:22 Discharge Summary Problems reviewed: Yes Reason For Visit: ALT MENTAL STATUS,INTRACRANIAL HEMORRHAGE Current Active Problems KIET (acute kidney injury) (Acute) AMS (altered mental status) (Acute) Acute metabolic encephalopathy (Acute) Encounter for screening laboratory testing for COVID-19 virus (Acute) HLD (hyperlipidemia) (Acute) HTN (hypertension) (Acute) Intracranial hemorrhage (Acute) Leukocytosis (Acute) SIRS (systemic inflammatory response syndrome) (Acute) Sepsis (Acute) Hospital Course: - Problems (1) AMS (altered mental status) Assessment/Plan: -CT head C-:Large acute/subacute hemorrhage in the right frontal lobe, anteriorly measuring 4.4 x 3.1 cm with moderate surrounding edema and mild mass effect on the right frontal horn. Close follow-up is needed to rule out any unde rlying mass lesion There is suggestion of minimal adjacent subarachnoid hemorrhage. There is also questionable faint/minimal subarachnoid hemorrhage at the right parieto- occipital junction. Small amount of intraventricular hemorrhage is layering in the occipital horns. -MRI brain w/wo Contrast:Acute approximately 4 x 3 cm right frontal intraparenchymal hemorrhage with mild to moderate perihemorrhagic edema. There is resultant minimal contralateral midline displacement. Trace amount of acute right frontal subdural blood ventrally. Small amount of acute blood within the occipital horns of the lateral ventricles. Trace amounts of acute subarachnoid blood along the occipital and temporal lobes bilaterally Multiple small bilateral cerebral and cerebellar chronic microbleeds are seen which could be on the basis of amyloid angiopathy. No obvious underlying neoplastic lesion is identified within the limitations of the exam. Correlation with 4 week follow-up contrast enhanced MRI or CT is suggested to document lack of an underlying lesion following resolution of the previously described acute right frontal intrapa renchymal hemorrhage. -Neurosurgery consult -UA/UC negative Problems reviewed: Yes Code(s): R41.82 - ALTERED MENTAL STATUS, UNSPECIFIED Qualifiers: Altered mental status type: unspecified Qualified Code(s): R41.82 - Altered mental status, unspecified (2) Acute metabolic encephalopathy Problems reviewed: Yes Code(s): G93.41 - METABOLIC ENCEPHALOPATHY (3) Intracranial hemorrhage Assessment/Plan: as above -Speech pathology consult -Repeat MRI in 4 weeks Problems reviewed: Yes Code(s): I62.9 - NONTRAUMATIC INTRACRANIAL HEMORRHAGE, UNSPECIFIED (4) KIET (acute kidney injury) Assessment/Plan: -Cr with sudden elevation to 3.1 -now stable -Monitor trend Problems reviewed: Yes Code(s): N17.9 - ACUTE KIDNEY FAILURE, UNSPECIFIED (5) HTN (hypertension) Assessment/Plan: -BP goal<160/90 -Start Toprol 50 mg po daily, first dose now Problems reviewed: Yes Code(s): I10 - ESSENTIAL (PRIMARY) HYPERTENSION (6) Urinary retention Assessment/Plan: -Urology consult -Karimi Condition: Improved - Instructions Referrals: Karel Avila MD [Primary Care Provider] - - Home Medications Comprehensive Discharge Medication List: Ambulatory Orders Atorvastatin Ca [Lipitor] 20 mg PO HS 05/16/20 Metoprolol Tartrate [Lopressor -] 50 mg PO DAILY 05/16/20 Montelukast Sodium [Singulair] 10 mg PO DAILY 05/16/20
--- NOTE | 2020-05-21 13:19 | PN ---
Progress Note, Physician History of Present Illness: Seen and examined at the bedside awake and alert not talking noted to have urinary retention after mccoy removed and it will be reinserted today no overnight events - Current Medication List Current Medications: Active Medications Atorvastatin Calcium (Lipitor -) 20 mg PO [facility] Last Admin: 05/20/20 22:20 Dose: 20 mg Documented by: Sodium Chloride (Normal Saline -) 1,000 mls @ 42 mls/hr IV ASDIR [facility] Last Admin: 05/21/20 00:30 Dose: 42 mls/hr Documented by: Metoprolol Succinate (Toprol Xl -) 50 mg PO DAILY [facility] Last Admin: 05/21/20 09:32 Dose: 50 mg Documented by: Montelukast Sodium (Singulair -) 10 mg PO [facility] Last Admin: 05/20/20 22:20 Dose: 10 mg Documented by: - Objective Vital Signs: Vital Signs Temperature 98.8 F 05/21/20 09:00 Pulse Rate 76 05/21/20 09:00 Respiratory Rate 18 05/21/20 09:00 Blood Pressure 132/78 05/21/20 09:00 O2 Sat by Pulse Oximetry (%) 95 05/21/20 09:00 Constitutional: Yes: No Distress Neck: Yes: Supple Cardiovascular: Yes: Regular Rate and Rhythm Respiratory: Yes: Regular Gastrointestinal: Yes: Soft Genitourinary: Yes: Bladder Distention Extremities: No: Cyanosis Edema: No Neurological: Yes: Alert Labs: CBC, BMP 05/17/20 08:15 05/20/20 07:22 INR, PTT INR 1.30 (0.83-1.09) H 05/17/20 08:15 Assessment/Plan 84 year old woman with history of hypertension and hyperlipidemia with recently treated UTI who presented with altered mental status and found to have ICH/SAH and developed acute kidney injury with serum Cr of 3.1. 1. Acute kidney injury due to bladder outlet obstruction in setting of ICH 2. ICH/SAH 3. Hypertension 4. Hyperlipdiemia Renal function stable to be discharged with mccoy in place and urology follow up Neurology and neurosurgery follow up to follow up with PMD on discharge. Thank you Shayne Bacon DO
[2020-05-21 14:22] VITALS: BP 131/73; TEMP 98.3
== END 2020-05-21 15:20 | DRG 64 ==
LOC: JER 16:57 → JERBED 22:35 → JICU 05-15 11:51 → J6S 05-16 20:22 → UNDODISIN 05-20 18:12
PROVIDERS: ADMIT Hospitalist; ATTEND Family Medicine
DX: I62.9 Nontraumatic intracranial hemorrhage, unspecified (principal); G93.41 Metabolic encephalopathy; G93.6 Cerebral edema; N17.9 Acute kidney failure, unspecified; I60.9 Nontraumatic subarachnoid hemorrhage, unspecified; I10 Essential (primary) hypertension; E78.5 Hyperlipidemia, unspecified; N31.9 Neuromuscular dysfunction of bladder, unspecified; R33.9 Retention of urine, unspecified; D72.828 Other elevated white blood cell count; R41.82 Altered mental status, unspecified; F03.90 Unspecified dementia, unspecified severity, without behavioral disturbance, psychotic disturbance, mood disturbance, and anxiety
CPT/HCPCS: 36415; 70450-TC; 70553-TC; 71045-TC-FY; 74177-TC; 76775-TC; 80048; 80053; 80061; 81003; 82550; 82553; 82962; 83605; 83690; 83721; 83735; 84100; 84484; 85025; 85610; 85730; 86850; 86900; 86901; 87040; 87086; 93005; 93010; 97116-GP; 97161-GP; 99291; A9579; J0131; J3480; Q9967; U0003